=== PATIENT | male | born 1930 | race Caucasian/White ===

== ENCOUNTER → 2016-04-11 | Outpatient (CLI) | payer OTHER ==
[~2016-04-11] MED LIST: ASPI81TA28 PO; ATEN-175 PO; CHOL200010 PO; CIPR-255 PO; DOXA8TAB PO; FINA5TAB PO; LISI40TA PO; LSN40 PO; MELA3TAB PO; MULT-506 PO; RABE20TA5 PO; SIMV80TA5 PO
--- NOTE | 2016-04-11 09:44 | DIAGNOSTIC IMAGING REPORT ---
LEFT KNEE 2 VIEWS HISTORY: Left KNEE PAIN COMPARISON: None. FINDINGS: There is no fracture or dislocation. Soft tissues are unremarkable. No radiopaque foreign bodies. Small knee effusion. Calcification of the distal tendon is likely chronic. Mild cartilage space narrowing within the medial compartment of the knee with small partial osteophytes. IMPRESSION: 1. No fractures. 2. Mild medial osteoarthritis. 3. Small knee effusion. Electronically signed by: Arnoldo Amado M.D. 04/11/2016 9:43 AM Dictated Date/Time: 04/11/2016 9:42 AM
== END | disposition home or self-care (01) ==
LOC: C.RADBC 09:14
PROVIDERS: ATTEND Internal Medicine Geriatric Medicine
DX: M25.562 Pain in left knee (principal); M25.462 Effusion, left knee

== ENCOUNTER → 2016-05-11 | Outpatient (CLI) | payer OTHER ==
[2016-05-11 17:31] LABS: SYNOVIAL FLUID APPEARANCE HAZY; SYNOVIAL FLUID COLOR AMBER; SYNOVIAL FLUID MONONUC RELAT 90.4 %; SYNOVIAL FLUID POLYNUC RELAT 9.6 %
[2016-05-15 21:34] LABS: LYME DNA PCR CSF OR SYNOVIAL Not detected (Not Detected); LYME DNA SOURCE Synovial Fluid
== END | disposition home or self-care (01) ==
LOC: C.LABBC 13:27
PROVIDERS: ATTEND Orthopaedic Surgery
DX: M25.462 Effusion, left knee (principal); M25.562 Pain in left knee

== ENCOUNTER → 2016-06-08 | Outpatient (CLI) | payer OTHER ==
[2016-06-08 12:16] LABS: BASO % 0.2 %; BASO ABS # 0.01 K/uL (0-0.2); COMPLETE YES; EOS % 2.2 %; HEMATOCRIT 39.3 % (42-52); IG% 0.2 %; LYMPH ABS # 1.41 K/uL (1.2-3.4); MEAN CELL VOLUME 93.8 fL (80-100); MEAN CORPUSCULAR HGB CONC 34.1 g/dl (32-36); MONO % 12.3 %; NEUT % 54.1 %; PLATELET COUNT 191 K/uL (130-400); RED BLOOD COUNT 4.19 M/uL (4.7-6.1); WHITE BLOOD COUNT 4.55 K/uL (4.8-10.8)
[2016-06-08 12:29] LABS: BLOOD UREA NITROGEN 25 mg/dl (7-18); BUN/CREATININE RATIO 16.4 (10-20); CALCIUM 8.6 mg/dl (8.5-10.1); CARBON DIOXIDE 28 mmol/L (21-32); CHLORIDE 106 mmol/L (98-107); GLUCOSE 109 mg/dl (70-99); POTASSIUM 3.5 mmol/L (3.5-5.1); SODIUM 141 mmol/L (136-145)
[2016-06-08 12:35] LABS: ESTIMATED AVERAGE GLUCOSE 131 mg/dl; HA1C FLAG Normal (Normal)
[2016-06-08 12:42] LABS: ALB/GLOB RATIO 0.8 (0.9-2); ALKALINE PHOSPHATASE 68 U/L (45-117); ALT/SGPT 22 U/L (12-78); AST/SGOT 18 U/L (15-37); CHOLESTEROL 96 mg/dl (0-200); CHOLESTEROL/HDL RATIO 2.9; HDL CHOLESTEROL 33 mg/dl; LDL CHOLESTEROL CALCULATED 35 mg/dl; TRIGLYCERIDES 138 mg/dl (0-150); VERY LOW DENSITY LIPOPROT CALC 28 mg/dl
== END | disposition home or self-care (01) ==
LOC: C.LABPBG 09:46
PROVIDERS: ATTEND Internal Medicine Geriatric Medicine
DX: I10 Essential (primary) hypertension (principal); E78.5 Hyperlipidemia, unspecified; R73.9 Hyperglycemia, unspecified; M19.90 Unspecified osteoarthritis, unspecified site

== ENCOUNTER → 2016-06-14 | Outpatient (CLI) | payer OTHER ==
--- NOTE | 2016-06-14 12:12 | DIAGNOSTIC IMAGING REPORT ---
RENAL ULTRASOUND HISTORY: Renal insufficiency CHRONIC KIDNEY DISEASE COMPARISON: None. FINDINGS: Right kidney: Maximum dimension 10.1 cm. No evidence for hydronephrosis. 1.9 cm upper pole cyst. Moderate cortical scarring with mild increase in cortical echogenicity Left kidney: Maximum dimension 10.8 cm. No evidence for hydronephrosis. Moderate increase in cortical echogenicity with mild cortical scarring Bladder: No bladder wall thickening. The bilateral ureteral jets were identified. IMPRESSION: 1. Findings consistent with nonobstructive renal insufficiency. 2. Small right renal cyst. 3. No evidence for hydronephrosis. Electronically signed by: Octavio Nesbitt M.D. 06/14/2016 12:09 PM Dictated Date/Time: 06/14/2016 12:08 PM
== END | disposition home or self-care (01) ==
LOC: C.ULTRBC 11:12
PROVIDERS: ATTEND Internal Medicine Geriatric Medicine
DX: N18.9 Chronic kidney disease, unspecified (principal)

== ENCOUNTER → 2016-07-17 | Outpatient (CLI) | payer OTHER ==
--- NOTE | 2016-07-17 18:20 | ECHOCARDIOGRAM REPORT ---
*NOTICE TO RECEIVING [employer] This information is strictly Confidential and protected under [place] law. [place] law prohibits you from making any further disclosure of this information unless further disclosure is expressly permitted by the written consent of the person to whom it pertains or is authorized by law. A general authorization for the release of medical or other information is not sufficient for this purpose. Hospital accepts no responsibility if the information is made available to any other person, INCLUDING THE PATIENT. Interpretation Summary * Name: RAMONA BRONSON Study Date: 07/17/2016 02:32 PM BP: 141/69 mmHg * Patient Location: [facility] HR: 58 * : 1930 (M/d/yyyy) Gender: Male Height: 67 in * Age: 85 yrs Ethnicity: [place] Weight: 178 lb * Ordering Physician: Rudy Preston * Referring Physician: Ron Almaguer * Performed By: Xenia Black RDCS * * Reason For Study: Abnormal EKG, pre-op * BSA: 1.9 m2 * -- Conclusions -- * There is borderline concentric left ventricular hypertrophy. * Left ventricular systolic function is normal. * Grade I diastolic dysfunction, (abnormal relaxation pattern). * The right ventricle is mildly dilated. * Right ventricular systolic pressure is normal. Procedure Details * A complete two-dimensional transthoracic echocardiogram was performed (2D, M-mode, Doppler and color flow Doppler). Left Ventricle * The left ventricle is normal in size. * There is borderline concentric left ventricular hypertrophy. * Ejection Fraction = 55-60%. * Left ventricular systolic function is normal. * Grade I diastolic dysfunction, (abnormal relaxation pattern). Right Ventricle * The right ventricle is mildly dilated. * The right ventricular systolic function is normal. Atria * The left atrial size is normal. * Right atrial size is normal. Mitral Valve * The mitral valve leaflets appear normal. There is no evidence of stenosis, fluttering, or prolapse. * There is no mitral regurgitation noted. Tricuspid Valve * The tricuspid valve is not well visualized, but is grossly normal. * There is trace tricuspid regurgitation. * Right ventricular systolic pressure is normal. Aortic Valve * The aortic valve is normal in structure and function. * No hemodynamically significant valvular aortic stenosis. * Trace aortic regurgitation. Great Vessels * The aortic root is normal size. Pericardium/Pleural * There is no pericardial effusion. MMode 2D Measurements and Calculations IVSd 1.3 cm LVIDd 4.3 cm LVIDs 3.0 cm LVPWd 1.2 cm IVS/LVPW 1.1 FS 30.3 % EDV(Teich) 83.7 ml ESV(Teich) 35.2 ml EF(Teich) 58.0 % EDV(cubed) 80.3 ml ESV(cubed) 27.2 ml EF(cubed) 66.2 % LV mass(C)d 194.8 grams LV mass(C)dI 101.3 grams/m\S\2 SV(Teich) 48.5 ml SI(Teich) 25.2 ml/m\S\2 SV(cubed) 53.1 ml SI(cubed) 27.6 ml/m\S\2 Ao root diam 3.2 cm Ao root area 8.1 cm\S\2 ACS 2.0 cm LA dimension 3.5 cm asc Aorta Diam 3.5 cm LA/Ao 1.1 LVOT diam 2.0 cm LVOT area 3.3 cm\S\2 LVAd ap4 28.7 cm\S\2 LVLd ap4 8.7 cm EDV(MOD-sp4) 75.6 ml EDV(sp4-el) 80.3 ml LVAs ap4 17.0 cm\S\2 LVLs ap4 7.3 cm ESV(MOD-sp4) 32.0 ml ESV(sp4-el) 33.3 ml EF(MOD-sp4) 57.7 % EF(sp4-el) 58.5 % LVAd ap2 20.4 cm\S\2 LVLd ap2 8.0 cm EDV(MOD-sp2) 44.5 ml EDV(sp2-el) 44.2 ml LVAs ap2 12.6 cm\S\2 LVLs ap2 7.4 cm ESV(MOD-sp2) 17.7 ml ESV(sp2-el) 18.2 ml EF(MOD-sp2) 60.4 % EF(sp2-el) 58.9 % LVLd %diff -8.67 % EDV(MOD-bp) 59.9 ml LVLs %diff 0.90 % ESV(MOD-bp) 23.7 ml EF(MOD-bp) 60.4 % SV(MOD-sp4) 43.6 ml SI(MOD-sp4) 22.7 ml/m\S\2 SV(MOD-sp2) 26.9 ml SI(MOD-sp2) 14.0 ml/m\S\2 SV(MOD-bp) 36.2 ml SI(MOD-bp) 18.8 ml/m\S\2 SV(sp4-el) 46.9 ml SI(sp4-el) 24.4 ml/m\S\2 SV(sp2-el) 26.0 ml SI(sp2-el) 13.5 ml/m\S\2 Doppler Measurements and Calculations MV E max alyson 63.6 cm/sec MV A max alyson 85.8 cm/sec MV E/A 0.74 MV dec time 0.25 sec Ao V2 max 90.6 cm/sec Ao max PG 3.3 mmHg Ao max PG (full) 0.41 mmHg BOB(V,A) 3.1 cm\S\2 BOB(V,D) 3.1 cm\S\2 AI max alyson 276.6 cm/sec AI max PG 30.6 mmHg AI dec slope 134.9 cm/sec\S\2 AI P1/2t 600.7 msec LV V1 max PG 2.9 mmHg LV V1 max 84.7 cm/sec PA V2 max 107.1 cm/sec PA max PG 4.6 mmHg PA acc slope 403.5 cm/sec\S\2 PA acc time 0.13 sec PI max alyson 154.2 cm/sec PI max PG 9.5 mmHg PI dec slope 57.8 cm/sec\S\2 PI P1/2t 781.6 msec TR max alyson 196.6 cm/sec PA pr(Accel) 20.7 mmHg
== END | disposition home or self-care (01) ==
LOC: C.CPL 14:25
PROVIDERS: ATTEND Internal Medicine Geriatric Medicine
DX: R94.31 Abnormal electrocardiogram [ECG] [EKG] (principal); Z01.810 Encounter for preprocedural cardiovascular examination

== ENCOUNTER 2016-10-09 18:37 | Emergency (ER) | payer OTHER ==
[~2016-10-09] VITALS: Ht 170.2 cm; Wt 80.0 kg
[~2016-10-09 18:37] MED LIST changes: -CIPR-255 PO; -LISI40TA PO; -MELA3TAB PO
[2016-10-09 18:39] VITALS: TEMP 37.4; Ht 170.2 cm; Wt 80.0 kg
[2016-10-09] MEDS ORDERED: SODIUM CHLORIDE 0.9% 1000ML 1,000 ML IV ONE (18:51)
[2016-10-09] MEDS ORDERED: MELA3TAB PO (19:36)
[2016-10-09] MEDS ORDERED: LISI40TA PO (19:36)
[2016-10-09 19:38] LABS: HEMATOCRIT 33.2 % (42-52); MEAN CELL VOLUME 91.5 fL (80-100); MEAN CORPUSCULAR HEMOGLOBIN 31.4 pg (25-34); MEAN CORPUSCULAR HGB CONC 34.3 g/dl (32-36); MEAN PLATELET VOLUME 9.3 fL (7.4-10.4); PLATELET COUNT 183 K/uL (130-400); RED BLOOD COUNT 3.63 M/uL (4.7-6.1); WHITE BLOOD COUNT 6.79 K/uL (4.8-10.8)
[2016-10-09 19:58] LABS: BASO % 0.1 %; BASO ABS # 0.01 K/uL (0-0.2); COMPLETE YES; EOS % 0.1 %; IG% 0.3 %; LYMPH % 13.4 %; LYMPH ABS # 0.91 K/uL (1.2-3.4); MONO % 9.9 %; NEUT % 76.2 %
--- NOTE | 2016-10-09 19:58 | DIAGNOSTIC IMAGING REPORT ---
CHEST ONE VIEW PORTABLE CLINICAL HISTORY: 86 years-old Male presenting with Sepsis. TECHNIQUE: Portable upright AP view of the chest was obtained. COMPARISON: 07/07/2015. FINDINGS: Cardiomediastinal silhouette normal. Lungs and pleural spaces clear. Degenerative changes of the thoracic spine. Upper abdomen normal. IMPRESSION: 1. No acute cardiopulmonary disease. Electronically signed by: Ron Bates M.D. 10/09/2016 7:56 PM Dictated Date/Time: 10/09/2016 7:55 PM
[2016-10-09 20:04] LABS: URINE APPEARANCE CLEAR (CLEAR); URINE COLOR DK YELLOW; URINE NITRITE NEG (NEG); URINE SPECIFIC GRAVITY 1.029 (1.000-1.030); UROBILINOGEN NEG (NEG); ZZUR CULT IF INDIC CLEAN CATCH NO
[2016-10-09 20:04] LABS: PARTIAL THROMBOPLASTIN RATIO 1.2
[2016-10-09 20:13] LABS: MANUAL MICROSCOPIC REQUIRED? NO; REVIEW REQ? YES
[2016-10-09 20:15] LABS: URINE BILIRUBIN NEG (NEG)
[2016-10-09 20:15] LABS: ALT/SGPT 20 U/L (12-78); BLOOD UREA NITROGEN 37 mg/dl (7-18); BUN/CREATININE RATIO 20.5 (10-20); CALCIUM 8.7 mg/dl (8.5-10.1); CARBON DIOXIDE 22 mmol/L (21-32); CHLORIDE 105 mmol/L (98-107); GLUCOSE 117 mg/dl (70-99); MAGNESIUM 1.4 mg/dl (1.8-2.4); POTASSIUM 3.9 mmol/L (3.5-5.1); SODIUM 135 mmol/L (136-145)
[2016-10-09 20:19] LABS: ALB/GLOB RATIO 0.8 (0.9-2); ALKALINE PHOSPHATASE 67 U/L (45-117); AST/SGOT 22 U/L (15-37); PHOSPHORUS 2.3 mg/dl (2.5-4.9)
[2016-10-09] MEDS ORDERED: MAGNESIUM SULFATE 1GM / D5W 1 GM BAG IV STA (20:21)
[2016-10-09] MEDS ORDERED: SODIUM CHLORIDE 0.9% 1000ML 1,000 ML IV STA (20:22)
[2016-10-09 20:31] LABS: URINE MUCUS PRESENT (NONE PRSENT); URINE PATH CASTS 0-3 GRANULAR CASTS /lpf (0)
--- NOTE | 2016-10-09 21:10 | DIAGNOSTIC IMAGING REPORT ---
ABD/PELVIS NO IV OR ORAL CONT CLINICAL HISTORY: 86 years-old Male presenting with diarrhea and fever. TECHNIQUE: Multidetector CT of the abdomen and pelvis was performed without the use of intravenous contrast. IV contrast: None. A dose lowering technique was used consistent with the principles of ALARA (as low as reasonably achievable). COMPARISON: None. CT DOSE (mGy.cm): The estimated cumulative dose is 453.36 mGy.cm. 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 Lung bases: Minimal dependent opacities, likely atelectasis. Trace right pleural effusion. Mild cardiac enlargement. The intraventricular blood pool is less dense than the adjacent myocardium suggesting anemia. Liver: Normal morphology. Density consistent with hepatic steatosis. Biliary: No gross biliary ductal dilatation allowing for noncontrast technique. Normal gallbladder. Pancreas: Mild parenchymal atrophy. Spleen: Normal. Adrenal glands: Normal. Kidneys and ureters: Hypodensity at the upper pole the right kidney, indeterminate but likely cyst or nonobstructing punctate calculus in the interpolar region of the right kidney (series 3 image 139). Additional nonobstructing punctate calculus at the right lower pole (series 3 image 177). No left renal calculi. No hydronephrosis. Ureters normal without evidence of calculi or dilatation. Gastrointestinal tract: Few sigmoid diverticula noted. No bowel obstruction. Peritoneal cavity: No free fluid or intraperitoneal gas. Bladder: Normal. Pelvic organs: Prostate and seminal vesicles normal. Vasculature: Atherosclerosis of the abdominal aorta with minimal infrarenal ectasia measuring up to 2.6 cm in maximal transverse dimension. Lymph nodes: No enlarged lymph nodes in the abdomen or pelvis. Abdominal wall: Normal. Musculoskeletal: Degenerative changes of the spine. Degenerative changes of the sacroiliac joints. IMPRESSION: 1. Two nonobstructing punctate right renal calculi. 2. Hepatic steatosis. 3. Dependent atelectasis and trace right pleural effusion. 4. Suggestion of anemia. Electronically signed by: Ron Bates M.D. 10/09/2016 9:08 PM Dictated Date/Time: 10/09/2016 9:01 PM
[2016-10-09] MEDS ORDERED: CIPR-255 PO (22:18)
--- NOTE | 2016-10-09 22:23 | EMERGENCY ROOM VISIT NOTE ---
History Report prepared by Estela: Charles Banerjee Under the Supervision of: Dr. Husam Jose D.O. First contact with patient: 18:51 Chief Complaint: FEVER Stated Complaint: FEVER KIDNEY, SODIUM History of Present Illness The patient is a 86 year old male who presents to the Emergency Room with complaints of a waxing and waning fever of 102 degrees beginning 2 days ago. He was referred to the ED by his PCP. Per , the patient has had diarrhea for the past 1.5 weeks. She states that he has been taking Pepto Bismol for his diarrhea, and has taken Tylenol for his fever. She states that the Tylenol has helped his fever. The patient's states that the patient was shaking earlier today. She notes that he had shrimp and clams the night before he began his diarrhea. The patient denies any cough, or abdominal pain. He denies any recent travelling. Source of History: patient, spouse/significant other () Onset: 2 days ago Symptom Intensity: 102 degrees Quality: other (fever) Timing: waxes/wanes Associated Symptoms: No cough, No abdominal pain Note: Additional symptoms: Shaking earlier today. Review of Systems See HPI for pertinent positives & negatives. A total of 10 systems reviewed and were otherwise negative. Past Medical & Surgical Medical Problems: (1) HTN (hypertension) (2) Hyperlipidemia Family History No pertinent family history stated. Social History Smoking Status: Never Smoker Marital Status: Current/Historical Medications Scheduled Aspirin (Aspirin Ec), 152 MG PO QAM Atenolol (Tenormin), 100 MG PO QAM Cholecalciferol (Vitamin D), 2,000 INTER.UNIT PO QAM Ciprofloxacin Hcl (Cipro), 500 MG PO BID Doxazosin Mesylate (Bph) (Cardura Xl), 4 MG PO HS Finasteride (Proscar), 5 MG PO HS Lisinopril (Zestril), 40 MG PO QAM Melatonin (Melatonin), 3 MG PO HS Rabeprazole Sodium (Aciphex), 10 MG PO QAM Allergies Coded Allergies: No Known Allergies (Unverified , 07/07/15) Physical Exam Vital Signs Date Time Temp Pulse Resp B/P (MAP) Pulse Ox O2 Delivery O2 Flow Rate FiO2 10/09/16 23:31 132/66 10/09/16 23:12 68 17 96 10/09/16 23:01 135/62 10/09/16 22:54 65 10/09/16 22:42 67 23 95 10/09/16 22:31 120/60 10/09/16 22:12 67 13 95 10/09/16 22:01 138/60 10/09/16 21:42 66 22 97 10/09/16 21:32 138/53 10/09/16 21:24 127/65 10/09/16 20:46 123/60 10/09/16 20:42 65 20 97 10/09/16 20:31 128/58 10/09/16 20:16 123/54 10/09/16 20:12 65 28 96 10/09/16 20:07 64 97 10/09/16 20:01 122/58 10/09/16 19:52 62 23 96 10/09/16 19:46 116/55 10/09/16 19:43 90/60 10/09/16 19:37 65 25 95 10/09/16 19:22 65 92 10/09/16 19:07 66 20 92 10/09/16 19:01 111/57 10/09/16 18:55 66 10/09/16 18:47 96/69 10/09/16 18:39 37.4 71 16 89/49 92 Room Air Physical Exam GENERAL: Patient is awake, alert, and in no acute distress. Patient is resting comfortably and showing no signs of anxiety EYES: The conjunctivae are clear. The pupils are round and reactive. EARS, NOSE, MOUTH AND THROAT: The nose is without any evidence of any deformity. Mucous membranes are dry. Tongue is midline NECK: The neck is nontender and supple. RESPIRATORY: Diminished at the right base. Rales noted at the right lung-field. No tachypnea or conversational dyspnea noted. CARDIOVASCULAR: Regular rate and rhythm noted there no murmurs rubs or gallops normal S1 normal S2 GASTROINTESTINAL: The abdomen is soft. Bowel sounds are present in all quadrants. Abdomen is nontender MUSCULOSKELETAL/EXTREMITIES: There is no evidence of gross deformity full range of motion is noted in the hips and shoulders SKIN: There is no obvious evidence of any rash. There are no petechiae, pallor or cyanosis noted. NEUROLOGIC: Patient is awake alert and oriented x3. 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 Lung bases: Minimal dependent opacities, likely atelectasis. Trace right pleural effusion. Mild cardiac enlargement. The intraventricular blood pool is less dense than the adjacent myocardium suggesting anemia. Liver: Normal morphology. Density consistent with hepatic steatosis. Biliary: No gross biliary ductal dilatation allowing for noncontrast technique. Normal gallbladder. Pancreas: Mild parenchymal atrophy. Spleen: Normal. Adrenal glands: Normal. Kidneys and ureters: Hypodensity at the upper pole the right kidney, indeterminate but likely cyst or nonobstructing punctate calculus in the interpolar region of the right kidney (series 3 image 139). Additional nonobstructing punctate calculus at the right lower pole (series 3 image 177). No left renal calculi. No hydronephrosis. Ureters normal without evidence of calculi or dilatation. Gastrointestinal tract: Few sigmoid diverticula noted. No bowel obstruction. Peritoneal cavity: No free fluid or intraperitoneal gas. Bladder: Normal. Pelvic organs: Prostate and seminal vesicles normal. Vasculature: Atherosclerosis of the abdominal aorta with minimal infrarenal ectasia measuring up to 2.6 cm in maximal transverse dimension. Lymph nodes: No enlarged lymph nodes in the abdomen or pelvis. Abdominal wall: Normal. Musculoskeletal: Degenerative changes of the spine. Degenerative changes of the sacroiliac joints. IMPRESSION: 1. Two nonobstructing punctate right renal calculi. 2. Hepatic steatosis. 3. Dependent atelectasis and trace right pleural effusion. 4. Suggestion of anemia. Electronically signed by: Ron Bates M.D. CHEST ONE VIEW PORTABLE FINDINGS: Cardiomediastinal silhouette normal. Lungs and pleural spaces clear. Degenerative changes of the thoracic spine. Upper abdomen normal. IMPRESSION: 1. No acute cardiopulmonary disease. Electronically signed by: Ron Bates M.D. Laboratory Results 10/09/16 19:21 Red Blood Count 3.63, Mean Corpuscular Volume 91.5, Mean Corpuscular Hemoglobin 31.4, Mean Corpuscular Hemoglobin Concent 34.3, Mean Platelet Volume 9.3, Neutrophils (%) (Auto) 76.2, Lymphocytes (%) (Auto) 13.4, Monocytes (%) (Auto) 9.9, Eosinophils (%) (Auto) 0.1, Basophils (%) (Auto) 0.1, Neutrophils # (Auto) 5.17, Lymphocytes # (Auto) 0.91, Monocytes # (Auto) 0.67, Eosinophils # (Auto) 0.01, Basophils # (Auto) 0.01 10/09/16 19:21 Test 10/09/16 19:21 10/09/16 19:31 10/09/16 19:45 White Blood Count 6.79 K/uL (4.8-10.8) Red Blood Count 3.63 M/uL (4.7-6.1) Hemoglobin 11.4 g/dL (14.0-18.0) Hematocrit 33.2 % (42-52) Mean Corpuscular Volume 91.5 fL (80-100) Mean Corpuscular Hemoglobin 31.4 pg (25-34) Mean Corpuscular Hemoglobin Concent 34.3 g/dl (32-36) Platelet Count 183 K/uL (130-400) Mean Platelet Volume 9.3 fL (7.4-10.4) Neutrophils (%) (Auto) 76.2 % Lymphocytes (%) (Auto) 13.4 % Monocytes (%) (Auto) 9.9 % Eosinophils (%) (Auto) 0.1 % Basophils (%) (Auto) 0.1 % Neutrophils # (Auto) 5.17 K/uL (1.4-6.5) Lymphocytes # (Auto) 0.91 K/uL (1.2-3.4) Monocytes # (Auto) 0.67 K/uL (0.11-0.59) Eosinophils # (Auto) 0.01 K/uL (0-0.5) Basophils # (Auto) 0.01 K/uL (0-0.2) RDW Standard Deviation 42.1 fL (36.4-46.3) RDW Coefficient of Variation 12.5 % (11.5-14.5) Immature Granulocyte % (Auto) 0.3 % Immature Granulocyte # (Auto) 0.02 K/uL (0.00-0.02) Erythrocyte Sedimentation Rate 49 mm/hr (0-14) Prothrombin Time 11.0 SECONDS (9.0-12.0) Prothromb Time International Ratio 1.0 (0.9-1.1) Activated Partial Thromboplast Time 31.5 SECONDS (21.0-31.0) Partial Thromboplastin Ratio 1.2 Anion Gap 8.0 mmol/L (3-11) Est Creatinine Clear Calc Drug Dose 31.0 ml/min Estimated GFR () 39.2 Estimated GFR (Non- 33.8 BUN/Creatinine Ratio 20.5 (10-20) Calcium Level 8.7 mg/dl (8.5-10.1) Phosphorus Level 2.3 mg/dl (2.5-4.9) Magnesium Level 1.4 mg/dl (1.8-2.4) Total Bilirubin 0.7 mg/dl (0.2-1) Aspartate Amino Transf (AST/SGOT) 22 U/L (15-37) Alanine Aminotransferase (ALT/SGPT) 20 U/L (12-78) Alkaline Phosphatase 67 U/L (45-117) Total Creatine Kinase 83 U/L (39-308) Creatine Kinase MB < 0.5 ng/ml (0.5-3.6) Creatine Kinase MB Ratio (0-3.0) Troponin I < 0.015 ng/ml (0-0.045) C-Reactive Protein 9.20 mg/dl (0-0.29) Pro-B-Type Natriuretic Peptide 785 pg/ml (0-1800) Total Protein 7.3 gm/dl (6.4-8.2) Albumin 3.2 gm/dl (3.4-5.0) Globulin 4.1 gm/dl (2.5-4.0) Albumin/Globulin Ratio 0.8 (0.9-2) Lipase 215 U/L (73-393) Bedside Lactic Acid Venous 1.03 mmol/L (0.90-1.70) Urine Color DK YELLOW Urine Appearance CLEAR (CLEAR) Urine pH 5.0 (4.5-7.5) Urine Specific [place] 1.029 (1.000-1.030) Urine Protein TRACE (NEG) Urine Glucose (UA) NEG (NEG) Urine Ketones TRACE (NEG) Urine Occult Blood NEG (NEG) Urine Nitrite NEG (NEG) Urine Bilirubin NEG (NEG) Urine Urobilinogen NEG (NEG) Urine Leukocyte Esterase NEG (NEG) Urine WBC (Auto) 1-5 /hpf (0-5) Urine RBC (Auto) 0-4 /hpf (0-4) Urine Hyaline Casts (Auto) 5-10 /lpf (0-5) Urine Epithelial Cells (Auto) 10-20 /lpf (0-5) Urine Bacteria (Auto) NEG (NEG) Urine Pathogenic Casts 0-3 GRANULAR CASTS /lpf (0) Urine Mucus PRESENT (NONE PRSENT) Laboratory results per my review. Medications Administered Medications (Trade) Dose Ordered Sig/Jr Route Start Time Stop Time Status Last Admin Dose Admin Sodium Chloride 1,000 ml @ 999 mls/hr Q1H1M ONCE IV 10/09/16 18:51 10/09/16 19:51 DC 10/09/16 17:40 999 MLS/HR Magnesium Sulfate (Magnesium Sulfate) 2 gm NOW STAT IV 10/09/16 20:21 10/09/16 20:22 DC 10/09/16 20:34 2 GM Sodium Chloride 1,000 ml @ 999 mls/hr Q1H1M STAT IV 10/09/16 20:22 10/09/16 21:22 DC 10/09/16 20:33 999 MLS/HR ECG Indication: other (hypotension) Rate (beats per minute): 65 Rhythm: sinus rhythm Findings: 1st degree AV block, no ectopy, other (Poor R wave progression) Comparison ECG Date: 07/07/15 Change: no significant change ED Course 1854: The patient was evaluated in room A12B. A complete history and physical examination were performed. Ordered NSS 1,000 ml @ 999 mls/hr IV. 2020: Ordered Magnesium Sulfate 2 gm IV, NSS 1,000 ml @ 999 mls/hr IV. 2214: Upon reevaluation, the patient is resting comfortably. He would like to go home. I discussed the results and treatment plan with him. The patient verbalized agreement of the treatment plan. He was discharged home. Medical Decision Differential diagnosis: Etiologies such as viral syndrome, otitis, pharyngitis, pneumonia, influenza, meningitis, urinary tract infection, sepsis, bacteremia, as well as others were entertained. Nursing notes reviewed. Additional history is obtained from the patient's family member. The patient is an 86-year-old male who presented to the emergency department for an evaluation of fever and diarrhea. The patient has had symptoms for the last few days. His had been treating him with antipyretics and at this time he does not have a fever. The patient's physical exam was not consistent with an acute surgical abdomen. He had laboratory studies done by his primary care physician and was sent to the emergency department because of these abnormal labs. The patient was treated with IV fluids in the emergency department. I discussed the patient's laboratory and radiographic studies with him. I offered to have the patient evaluated by the hospitalist group for possible inpatient management but the patient did not wish to stay in the hospital. He was encouraged to rest and avoid any strenuous activity. He was also encouraged to continue all medications as prescribed. He was also encouraged to follow-up with his primary care physician for repeat laboratory studies to ensure things were improving. He was also encouraged to bring a stool specimen in for treatment and testing. The was also very concerned about the ongoing fever. I gave him a prescription for Cipro and told him to have it filled in 48 hours if he continues to have fever and diarrhea. Otherwise he was encouraged to return the emergency Department immediately if symptoms change worsen or the need arises. Medication Reconcilliation Current Medication List: was personally reviewed by me Blood Pressure Screening Patient's blood pressure: Normal blood pressure Blood pressure disposition: Did not require urgent referral Impression Primary Impression: Diarrhea Additional Impressions: Dehydration TERESA (acute kidney injury) Fever Hypomagnesemia Scribe Attestation The scribe's documentation has been prepared under my direction and personally reviewed by me in its entirety. I confirm that the note above accurately reflects all work, treatment, procedures, and medical decision making performed by me. Departure Information Dispostion Home / Self-Care Prescriptions Ciprofloxacin Hcl (CIPRO) 500 Mg Tab 500 MG PO BID, #20 TAB Prov: Husam Jose, 10/09/16 Referrals Rudy Preston M.D. (PCP) Forms HOME CARE DOCUMENTATION FORM, IMPORTANT VISIT INFORMATION Patient Instructions Dehydration, Diarrhea, My [facility] Additional Instructions Continue to drink plenty clear liquids including electrolyte drinks such as Pedialyte and Gatorade. Continue using Motrin and Tylenol as directed for pain and fever. Call your family to schedule a follow-up appointment. I will recommend repeat laboratory studies in 48 hours. Start taking the antibiotic on if you continue to have a fever. Try to have stool studies obtained with your family Problem Qualifiers Primary Impression: Diarrhea Diarrhea type: unspecified type Qualified Codes: R19.7 - Diarrhea, unspecified Additional Impressions: Fever Fever type: unspecified Qualified Codes: R50.9 - Fever, unspecified
[2016-10-09 23:12] VITALS: PULSE 68; O2SAT 96
[2016-10-09 23:31] VITALS: BP 132/66
== END 2016-10-09 23:50 | disposition home or self-care (01) ==
LOC: C.EDB 18:38 → C.EDA 23:50
DX: R50.9 Fever, unspecified (principal); R19.7 Diarrhea, unspecified; E86.0 Dehydration; N17.9 Acute kidney failure, unspecified; E83.42 Hypomagnesemia; I10 Essential (primary) hypertension; E78.5 Hyperlipidemia, unspecified; Z79.82 Long term (current) use of aspirin; Z79.899 Other long term (current) drug therapy

== ENCOUNTER → 2016-10-11 | Outpatient (CLI) | payer OTHER ==
[~2016-10-11] MED LIST changes: +CIPR-255 PO; +LISI40TA PO; -LSN40 PO; +MELA3TAB PO; -MULT-506 PO; -SIMV80TA5 PO
[2016-10-11 17:49] LABS: BASO % 0.2 %; BASO ABS # 0.01 K/uL (0-0.2); COMPLETE YES; EOS % 1.2 %; HEMATOCRIT 34.6 % (42-52); IG% 0.2 %; LYMPH % 19.5 %; LYMPH ABS # 1.14 K/uL (1.2-3.4); MEAN CELL VOLUME 93.3 fL (80-100); MEAN CORPUSCULAR HEMOGLOBIN 31.8 pg (25-34); MEAN CORPUSCULAR HGB CONC 34.1 g/dl (32-36); MEAN PLATELET VOLUME 10.2 fL (7.4-10.4); MONO % 11.1 %; NEUT % 67.8 %; PLATELET COUNT 178 K/uL (130-400); RED BLOOD COUNT 3.71 M/uL (4.7-6.1); WHITE BLOOD COUNT 5.84 K/uL (4.8-10.8)
[2016-10-11 17:50] LABS: URINE APPEARANCE TURBID (CLEAR); URINE BILIRUBIN NEG (NEG); URINE COLOR DK YELLOW; URINE NITRITE NEG (NEG); URINE SPECIFIC GRAVITY 1.026 (1.000-1.030); UROBILINOGEN NEG (NEG); ZZUR CULT IF INDIC CLEAN CATCH NO
[2016-10-11 17:54] LABS: MANUAL MICROSCOPIC REQUIRED? NO; REVIEW REQ? NO
[2016-10-11 19:03] LABS: ALB/GLOB RATIO 0.7 (0.9-2); ALKALINE PHOSPHATASE 64 U/L (45-117); ALT/SGPT 27 U/L (12-78); AST/SGOT 23 U/L (15-37); BLOOD UREA NITROGEN 22 mg/dl (7-18); BUN/CREATININE RATIO 15.9 (10-20); CALCIUM 8.7 mg/dl (8.5-10.1); CARBON DIOXIDE 25 mmol/L (21-32); CHLORIDE 109 mmol/L (98-107); GLUCOSE 102 mg/dl (70-99); LYME DISEASE AB IGG NEG (NEG); LYME DISEASE AB IGM NEG (NEG); MAGNESIUM 1.8 mg/dl (1.8-2.4); POTASSIUM 4.1 mmol/L (3.5-5.1); SODIUM 138 mmol/L (136-145)
== END | disposition home or self-care (01) ==
LOC: C.LABPBG 13:20
PROVIDERS: ATTEND Internal Medicine Geriatric Medicine
DX: N18.9 Chronic kidney disease, unspecified (principal); R50.9 Fever, unspecified; R19.7 Diarrhea, unspecified; E83.42 Hypomagnesemia

== ENCOUNTER → 2016-10-13 | Outpatient (CLI) | payer OTHER | END | disposition home or self-care (01) | LOC: C.LAB1850 10:00 | PROVIDERS: ATTEND Nurse Practitioner Adult Health | DX: R50.9 Fever, unspecified (principal); R19.7 Diarrhea, unspecified; R63.4 Abnormal weight loss ==

== ENCOUNTER → 2016-12-11 | Outpatient (CLI) | payer OTHER ==
[2016-12-11 17:44] LABS: BASO % 0.2 %; BASO ABS # 0.01 K/uL (0-0.2); COMPLETE YES; EOS % 3.8 %; HEMATOCRIT 37.5 % (42-52); IG% 0.2 %; LYMPH % 25.3 %; LYMPH ABS # 1.33 K/uL (1.2-3.4); MEAN CELL VOLUME 95.2 fL (80-100); MEAN CORPUSCULAR HEMOGLOBIN 31.7 pg (25-34); MEAN CORPUSCULAR HGB CONC 33.3 g/dl (32-36); MONO % 10.5 %; PLATELET COUNT 169 K/uL (130-400); RED BLOOD COUNT 3.94 M/uL (4.7-6.1); WHITE BLOOD COUNT 5.26 K/uL (4.8-10.8)
[2016-12-11 18:14] LABS: ALT/SGPT 17 U/L (12-78); AST/SGOT 16 U/L (15-37); BLOOD UREA NITROGEN 25 mg/dl (7-18); BUN/CREATININE RATIO 15.9 (10-20); CALCIUM 9.3 mg/dl (8.5-10.1); CARBON DIOXIDE 24 mmol/L (21-32); CHLORIDE 103 mmol/L (98-107); GLUCOSE 92 mg/dl (70-99); POTASSIUM 4.5 mmol/L (3.5-5.1); SODIUM 137 mmol/L (136-145)
[2016-12-11 18:15] LABS: URINE PROTIEN/CREAT RATIO 0.2 (0-0.2); URINE TOTAL PROTEIN 40.2 mg/dl (0-11.9)
[2016-12-11 18:24] LABS: ALB/GLOB RATIO 0.9 (0.9-2); ALKALINE PHOSPHATASE 74 U/L (45-117)
== END | disposition home or self-care (01) ==
LOC: C.LABPBG 15:40
PROVIDERS: ATTEND Internal Medicine Geriatric Medicine
DX: I25.10 Atherosclerotic heart disease of native coronary artery without angina pectoris (principal); I12.9 Hypertensive chronic kidney disease with stage 1 through stage 4 chronic kidney disease, or unspecified chronic kidney disease; R50.9 Fever, unspecified; E78.5 Hyperlipidemia, unspecified; R73.9 Hyperglycemia, unspecified; R63.4 Abnormal weight loss; D64.9 Anemia, unspecified; Z86.010 Personal history of colon polyps; N18.9 Chronic kidney disease, unspecified

== ENCOUNTER → 2017-06-18 | Outpatient (CLI) | payer OTHER ==
[2017-06-18 12:57] LABS: BASO % 0.5 %; BASO ABS # 0.02 K/uL (0-0.2); EOS % 2.6 %; HEMATOCRIT 39.4 % (42-52); HEMOGLOBIN 13.5 g/dL (14.0-18.0); LYMPH % 33.7 %; LYMPH ABS # 1.31 K/uL (1.2-3.4); MEAN CELL VOLUME 93.8 fL (80-100); MEAN CORPUSCULAR HEMOGLOBIN 32.1 pg (25-34); MEAN CORPUSCULAR HGB CONC 34.3 g/dl (32-36); MEAN PLATELET VOLUME 9.8 fL (7.4-10.4); MONO % 14.1 %; MONO ABS # 0.55 K/uL (0.11-0.59); NEUT % 49.1 %; NEUT ABS # 1.91 K/uL (1.4-6.5); PLATELET COUNT 189 K/uL (130-400); RED CELL DISTRIBUTION WIDTH CV 13.3 % (11.5-14.5); RED CELL DISTRIBUTION WIDTH SD 45.7 fL (36.4-46.3); WHITE BLOOD COUNT 3.89 K/uL (4.8-10.8)
[2017-06-18 13:22] LABS: ALBUMIN 3.7 gm/dl (3.4-5.0); ALT/SGPT 18 U/L (12-78); AST/SGOT 17 U/L (15-37); BLOOD UREA NITROGEN 22 mg/dl (7-18); CALCIUM 8.9 mg/dl (8.5-10.1); CARBON DIOXIDE 25 mmol/L (21-32); CREATININE 1.47 mg/dl (0.60-1.40); GLUCOSE 86 mg/dl (70-99); HEMOGLOBIN A1C 6.1 % (4.5-5.6); POTASSIUM 4.7 mmol/L (3.5-5.1); SODIUM 136 mmol/L (136-145)
[2017-06-18 13:33] LABS: ALKALINE PHOSPHATASE 75 U/L (45-117); CHOLESTEROL 93 mg/dl (0-200); LDL CHOLESTEROL CALCULATED 36 mg/dl; TOTAL PROTEIN 8.2 gm/dl (6.4-8.2)
== END | disposition home or self-care (01) ==
LOC: C.LABPBG 09:44
PROVIDERS: ATTEND Internal Medicine Geriatric Medicine
DX: I10 Essential (primary) hypertension (principal); E78.5 Hyperlipidemia, unspecified; D64.9 Anemia, unspecified; R73.9 Hyperglycemia, unspecified; E53.8 Deficiency of other specified B group vitamins

== ENCOUNTER 2020-07-11 08:25 | Observation (INO) ==
--- NOTE | 2020-07-11 09:43 | Emergency Department Note ---
Impression & Plan Weakness, Anemia, Fever, Low blood pressure ED Provider Note NAME: RAMONA BRONSON AGE: 89 SEX: M : 1930 ARRIVES VIA: Walk-In INFORMANT: Patient, ED PROVIDER(S): Husam Jose DO CHIEF COMPLAINT: Generalized weakness HPI: The patient is an 89-year-old male who presented to the emergency department for an evaluation of generalized weakness. The patient has noticed that his blood pressure has been very low. He is also had a fever especially over the last 48 hours. The patient states when he tries to stand he becomes very dizzy and lightheaded. He is on multiple medications for blood pressure and did not take his blood pressure medication this morning. He denies having any abdominal pain. He has no vomiting or diarrhea. He notices no rashes. He did have slight cough with difficulty breathing but overall has not had any specific productive sputum that he knows of. The patient was seen by his primary care physician for different issues last week. He presented to the emergency department today because of dizziness upon standing lightheadedness and felt as though he was going to fall. ROS: See above HPI for pertinent positives & negatives. A total of 10 systems reviewed and were otherwise negative. PAST MEDICAL HISTORY: See Below PAST SURGICAL HISTORY: See Below FAMILY HISTORY: See Below SOCIAL HISTORY: See Below HOME MEDICATIONS: See Below ALLERGIES: See Below VITALS: See Below PHYSICAL EXAMINATION: GENERAL: The patient is awake and alert. He is nonanxious appearing. EYES: The conjunctivae are clear. The pupils are round and reactive. EARS, NOSE, MOUTH AND THROAT: The nose is without any evidence of any deformity. NECK: The neck is nontender and supple. RESPIRATORY: Normal respiratory effort was noted. There were diminished breath sounds in the left lung field. CARDIOVASCULAR: Regular rate and rhythm noted there no murmurs rubs or gallops normal S1 normal S2. GASTROINTESTINAL: The abdomen is soft. Abdomen is nontender. MUSCULOSKELETAL/EXTREMITIES: There is no evidence of gross deformity full range of motion is noted in the hips and shoulders. SKIN: There is no obvious evidence of any rash. There are no petechiae, pallor or cyanosis noted. NEUROLOGIC: Patient is awake alert and oriented x3. Strength was symmetric. MEDICAL DECISION MAKING: The patient is an 89-year-old male who presented to the emergency department with his significant other for an evaluation of weakness. The patient has had fever over the course the last few days. His significant other has been treating this with [id number] medication for fever. The patient is also noticed generalized weakness. He has had a few episodes of dizziness upon standing and actually fell last week. The patient had no fever in the emergency department. Given his age and comorbidities further laboratory and radiographic studies were obtained to determine the possible cause for the fever. The patient treated with IV fluids in the emergency department. He was reevaluated multiple times. He was able to ambulate without difficulty. His significant other was very concerned because the patient's age and comorbidities as well as his long history of hypertension because of his episodes of low blood pressure she was not comfortable with him being discharged home. For this reason I discussed his case with the on-call [facility] hospitalist group. They have agreed to evaluate the patient in the emergency department for further management and disposition. Triage Nursing notes reviewed. Prior medical records reviewed Vital Signs: reviewed and remarkable for no significant abnormalities Differential diagnosis: Viral syndrome, otitis, pharyngitis, pneumonia, influenza, meningitis, urinary tract infection, sepsis, bacteremia, as well as other pathologies. ER treatment provided: See below Diagnostics interpreted by me: ECG: EKG was obtained in the emergency department. My interpretation is sinus r hythm at 84 bpm. First-degree AV block was noted. There is no ectopy. Poor R wave progression was noted with anterior Q waves. This was compared to a tracing from October 092016. No significant changes were noted. Cardiac Monitoring: An order was placed for continuous cardiac monitoring. The monitor shows a rate of 92 bpm with sinus rhythm. Laboratory studies: As stated above and show below. Imaging studies: See below Consultation(s): 1230: I discussed this case with Dr. Aj.. She will evaluate the patient in the emergency department. 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 Chronic kidney disease, stage III (moderate) Diverticulosis (~07/2013) noted colonoscopy July 2013 Gastroesophageal reflux disease History of colon polyps (~07/2013) July 2013 HTN (hypertension) Hyperlipidemia Osteoarthritis Prediabetes Vitamin B12 deficiency Surgical History H/O arthroscopic knee surgery H/O circumcision S/P coronary artery stent placement (2006) x 2 Family History Family/Other Coronary heart disease Father Kidney disease Family history of liver cancer Cancer kidney Mother Heart disease Family history of CVA Brother Myocardial infarction Denies family history of Ovarian cancer Prostate cancer Breast cancer Colorectal cancer Social History Smoking Status: Never smoker Second Hand Exposure: No; Hx Alcohol Use: Yes Alcohol type: beer Alcohol Intake Frequency: Monthly or Less Hx Substance Use: No Preferred Language: Bermudian Communication Ability: Effective Visual Impairment: No Limitations Hearing Ability: Hard of Hearing Beliefs That Will Affect Care: None marital status: Current Living Situation: Spouse current occupational status: retired 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 Diet soda) during the past year weight has: remained stable Dental Care, Regularly: Yes Physical Activity Frequency: 3-4 Times per Week Seatbelt Use: always Sunscreen Use: No Allergies Allergies Allergy/AdvReac Type Severity Reaction Status Date / Time No Known Allergies Allergy Unverified 06/29/20 08:44 Home Meds Home Medications Medication Instructions Recorded Confirmed acetaminophen 650 mg 650 mg PO Q12H PRN 06/29/20 07/11/20 tablet,extended release aspirin [Adult Low Dose Aspirin] 162 mg PO QAM 07/11/20 07/11/20 atenolol 50 mg PO QAM 07/11/20 07/11/20 cetirizine 10 mg PO QAM 07/11/20 07/11/20 doxazosin 4 mg PO QPM 07/11/20 07/11/20 finasteride 5 mg PO QAM 07/11/20 07/11/20 lisinopril 20 mg PO QAM 07/11/20 07/11/20 Previous Rx's Medication Instructions Recorded ergocalciferol (vitamin D2) 50 mcg 2,000 units PO DAILY #30 tab 11/19/18 (2,000 unit) tablet simvastatin 40 mg tablet 40 mg PO QPM #90 tab 02/01/20 rabeprazole 20 mg tablet,delayed 20 mg PO DAILY PRN #90 tab 06/20/20 release Results & Data (ED) Vital Signs Vital Signs - 24 hr 07/11/20 08:55 07/11/20 09:34 07/11/20 09:39 Temperature 36.7 C Temperature Source Temporal Artery Scan Pulse Rate 94 H 85 Pulse Rate [Apical] 85 Pulse Rate from SpO2 Sensor 87 Respiratory Rate 18 20 18 Respiratory Effort / Characteristics Non-Labored Non-Labored Spontaneous Respiratory Depth Normal Normal Respiratory Pattern Regular Blood Pressure 104/61 125/59 L Blood Pressure [Right Arm] 125/59 L Blood Pressure Mean 75 81 Blood Pressure Mean [Right Arm] 81 Pulse Oximetry 95 94 94 Oxygen Delivery Method Room Air Room Air Sepsis Recent Fever Within 48 Hours No Sepsis New/Unexplained Change in Mental Status No Sepsis Action Taken by Nursing No Action Required 07/11/20 09:40 07/11/20 09:54 07/11/20 10:00 Temperature Temperature Source Pulse Rate 85 85 92 H Pulse Rate [Apical] Pulse Rate from SpO2 Sensor 85 84 Respiratory Rate 20 21 24 Respiratory Effort / Characteristics Respiratory Depth Respiratory Pattern Blood Pressure 93/66 L Blood Pressure [Right Arm] Blood Pressure Mean 75 Blood Pressure Mean [Right Arm] Pulse Oximetry 94 95 93 Oxygen Delivery Method Room Air Sepsis Recent Fever Within 48 Hours Sepsis New/Unexplained Change in Mental Status Sepsis Action Taken by Nursing 07/11/20 10:01 07/11/20 10:31 07/11/20 10:37 Temperature Temperature Source Pulse Rate 85 82 83 Pulse Rate [Apical] Pulse Rate from SpO2 Sensor 85 83 83 Respiratory Rate 20 20 23 Respiratory Effort / Characteristics Respiratory Depth Respiratory Pattern Blood Pressure 117/61 Blood Pressure [Right Arm] Blood Pressure Mean 79 Blood Pressure Mean [Right Arm] Pulse Oximetry 95 96 93 Oxygen Delivery Method Sepsis Recent Fever Within 48 Hours Sepsis New/Unexplained Change in Mental Status Sepsis Action Taken by Nursing 07/11/20 10:38 07/11/20 11:00 07/11/20 11:01 Temperature Temperature Source Pulse Rate 83 82 81 Pulse Rate [Apical] Pulse Rate from SpO2 Sensor 83 82 82 Respiratory Rate 20 22 20 Respiratory Effort / Characteristics Respiratory Depth Respiratory Pattern Blood Pressure 118/71 Blood Pressure [Right Arm] Blood Pressure Mean 86 Blood Pressure Mean [Right Arm] Pulse Oximetry 94 93 95 Oxygen Delivery Method Sepsis Recent Fever Within 48 Hours Sepsis New/Unexplained Change in Mental Status Sepsis Action Taken by Nursing 07/11/20 11:30 07/11/20 11:31 07/11/20 12:00 Temperature Temperature Source Pulse Rate 82 81 79 Pulse Rate [Apical] Pulse Rate from SpO2 Sensor 82 82 79 Respiratory Rate 21 24 20 Respiratory Effort / Characteristics Respiratory Depth Respiratory Pattern Blood Pressure 114/66 118/64 Blood Pressure [Right Arm] Blood Pressure Mean 82 82 Blood Pressure Mean [Right Arm] Pulse Oximetry 94 94 93 Oxygen Delivery Method Sepsis Recent Fever Within 48 Hours Sepsis New/Unexplained Change in Mental Status Sepsis Action Taken by Nursing 07/11/20 12:01 07/11/20 12:30 07/11/20 12:31 Temperature Temperature Source Pulse Rate 79 75 75 Pulse Rate [Apical] Pulse Rate from SpO2 Sensor 79 75 75 Respiratory Rate 23 20 20 Respiratory Effort / Characteristics Respiratory Depth Respiratory Pattern Blood Pressure 124/90 Blood Pressure [Right Arm] Blood Pressure Mean 101 Blood Pressure Mean [Right Arm] Pulse Oximetry 91 94 94 Oxygen Delivery Method Sepsis Recent Fever Within 48 Hours Sepsis New/Unexplained Change in Mental Status Sepsis Action Taken by Nursing 07/11/20 13:00 07/11/20 13:01 07/11/20 13:25 Temperature Temperature Source Pulse Rate 77 78 Pulse Rate [Apical] 77 Pulse Rate from SpO2 Sensor 77 79 Respiratory Rate 21 22 22 Respiratory Effort / Characteristics Respiratory Depth Respiratory Pattern Blood Pressure 128/79 Blood Pressure [Right Arm] 128/79 Blood Pressure Mean 95 Blood Pressure Mean [Right Arm] 95 Pulse Oximetry 93 93 94 Oxygen Delivery Method Room Air Sepsis Recent Fever Within 48 Hours Sepsis New/Unexplained Change in Mental Status Sepsis Action Taken by Nursing 07/11/20 13:30 07/11/20 13:31 Temperature Temperature Source Pulse Rate 77 77 Pulse Rate [Apical] Pulse Rate from SpO2 Sensor 78 78 Respiratory Rate 22 20 Respiratory Effort / Characteristics Respiratory Depth Respiratory Pattern Blood Pressure 120/80 Blood Pressure [Right Arm] Blood Pressure Mean 93 Blood Pressure Mean [Right Arm] Pulse Oximetry 96 95 Oxygen Delivery Method Sepsis Recent Fever Within 48 Hours Sepsis New/Unexplained Change in Mental Status Sepsis Action Taken by [facility] Medications Current Medication List: was personally reviewed by me Laboratory Data Attestation: I reviewed the patient's lab results. Result diagrams: 07/11/20 09:40 07/11/20 09:40 Lab Results 0507/11/20 07/11/20 Range/Units 09:40 09:40 09:40 WBC 6.78 (4.8-10.8) K/uL RBC 3.73 L (4.7-6.1) M/uL Hgb 11.8 L (14.0-18.0) g/dL Hct 34.9 L (42-52) % MCV 93.6 (80-100) fL MCH 31.6 (25-34) pg MCHC 33.8 (32-36) g/dL RDW Std Deviation 42.8 (36.4-46.3) fL RDW Coeff of Randy 12.7 (11.5-14.5) % Plt Count 184 (130-400) K/uL MPV 9.1 (7.4-10.4) fL Immature Gran % (Auto) 0.1 % Neut % (Auto) 73.3 % Lymph % (Auto) 12.7 % Slope % (Auto) 11.7 % Eos % (Auto) 2.1 % Baso % (Auto) 0.1 % Neut # (Auto) 4.97 (1.4-6.5) K/uL Lymph # (Auto) 0.86 L (1.2-3.4) K/uL Slope # (Auto) 0.79 H (0.11-0.59) K/uL Eos # (Auto) 0.14 (0-0.5) K/uL Baso # (Auto) 0.01 (0-0.2) K/uL Immature Gran # (Auto) 0.01 (0.00-0.02) K/uL PT 10.6 (9.0-12.0) Seconds INR 1.0 (0.9-1.1) APTT 29.7 (21.0-31.0) Seconds PTT Ratio 1.1 Sodium 134 L (136-145) mmol/L Potassium 4.3 (3.5-5.1) mmol/L Chloride 104 (98-107) mmol/L Carbon Dioxide 22 (21-32) mmol/L Anion Gap 8.0 (3-11) BUN 35 H (7-18) mg/dl Creatinine 1.82 H (0.6-1.4) mg/dl Est Cr Clr Drug Dosing Not Reportable Est GFR ( Amer) 37.9 Est GFR (Non-Af Amer) 32.7 BUN/Creatinine Ratio 19.4 (10-20) Glucose 115 H (70-99) mg/dl Lactate (0.4-2.0) mmol/L Calcium 8.7 (8.5-10.1) mg/dl Magnesium 1.9 (1.8-2.4) mg/dl Total Bilirubin 0.9 (0.2-1) mg/dl AST 32 (15-37) U/L ALT 23 (12-78) U/L Alkaline Phosphatase 64 (45-117) U/L Troponin I < 0.015 (0-0.045) ng/ml NT-Pro-B Natriuret Pep 500 (0-1800) pg/ml Total Protein 8.1 (6.4-8.2) gm/dl Albumin 3.1 L (3.4-5.0) gm/dl Globulin 5.0 H (2.5-4.0) gm/dl Albumin/Globulin Ratio 0.6 L (0.9-2) Procalcitonin (0-0.5) ng/ml Urine Color Urine Appearance (Clear) Urine pH (4.5-7.5) Ur Specific [place] (1.000-1.030) Urine Protein (Negative) Urine Glucose (UA) (Negative) Urine Ketones (Negative) Urine Blood (Negative) Urine Nitrite (Negative) Urine Bilirubin (Negative) Urine Urobilinogen (Negative) Ur Leukocyte Esterase (Negative) Urine WBC (Auto) (0-5) /hpf Urine RBC (Auto) (0-4) /hpf U Hyaline Cast (Auto) (0-5) /lpf U Epithel Cells (Auto) (0-5) /lpf Urine Bacteria (Auto) (Negative) Anaplasma Smear See Comment Lyme Disease IgG Ab (Negative) Lyme Disease IgM Ab (Negative) COVID-19 Eval Order SARS-CoV-2 (PCR) (Negative) Influenza Type A (PCR) (Neg) Influenza Type B (PCR) (Neg) RSV (RT-PCR) (Neg) 07/11/20 07/11/20 07/11/20 Range/Units 09:40 09:40 09:40 WBC (4.8-10.8) K/uL RBC (4.7-6.1) M/uL Hgb (14.0-18.0) g/dL Hct (42-52) % MCV (80-100) fL MCH (25-34) pg MCHC (32-36) g/dL RDW Std Deviation (36.4-46.3) fL RDW Coeff of Randy (11.5-14.5) % Plt Count (130-400) K/uL MPV (7.4-10.4) fL Immature Gran % (Auto) % Neut % (Auto) % Lymph % (Auto) % Slope % (Auto) % Eos % (Auto) % Baso % (Auto) % Neut # (Auto) (1.4-6.5) K/uL Lymph # (Auto) (1.2-3.4) K/uL Slope # (Auto) (0.11-0.59) K/uL Eos # (Auto) (0-0.5) K/uL Baso # (Auto) (0-0.2) K/uL Immature Gran # (Auto) (0.00-0.02) K/uL PT (9.0-12.0) Seconds INR (0.9-1.1) APTT (21.0-31.0) Seconds PTT Ratio Sodium (136-145) mmol/L Potassium (3.5-5.1) mmol/L Chloride (98-107) mmol/L Carbon Dioxide (21-32) mmol/L Anion Gap (3-11) BUN (7-18) mg/dl Creatinine (0.6-1.4) mg/dl Est Cr Clr Drug Dosing Est GFR ( Amer) Est GFR (Non-Af Amer) BUN/Creatinine Ratio (10-20) Glucose (70-99) mg/dl Lactate 1.2 (0.4-2.0) mmol/L Calcium (8.5-10.1) mg/dl Magnesium (1.8-2.4) mg/dl Total Bilirubin (0.2-1) mg/dl AST (15-37) U/L ALT (12-78) U/L Alkaline Phosphatase (45-117) U/L Troponin I (0-0.045) ng/ml NT-Pro-B Natriuret Pep (0-1800) pg/ml Total Protein (6.4-8.2) gm/dl Albumin (3.4-5.0) gm/dl Globulin (2.5-4.0) gm/dl Albumin/Globulin Ratio (0.9-2) Procalcitonin < 0.05 (0-0.5) ng/ml Urine Color Urine Appearance (Clear) Urine pH (4.5-7.5) Ur Specific [place] (1.000-1.030) Urine Protein (Negative) Urine Glucose (UA) (Negative) Urine Ketones (Negative) Urine Blood (Negative) Urine Nitrite (Negative) Urine Bilirubin (Negative) Urine Urobilinogen (Negative) Ur Leukocyte Esterase (Negative) Urine WBC (Auto) (0-5) /hpf Urine RBC (Auto) (0-4) /hpf U Hyaline Cast (Auto) (0-5) /lpf U Epithel Cells (Auto) (0-5) /lpf Urine Bacteria (Auto) (Negative) Anaplasma Smear Lyme Disease IgG Ab (Negative) Lyme Disease IgM Ab (Negative) COVID-19 Eval Order CovFluRsv at [facility] SARS-CoV-2 (PCR) (Negative) Influenza Type A (PCR) (Neg) Influenza Type B (PCR) (Neg) RSV (RT-PCR) (Neg) 07/11/20 07/11/20 07/11/20 Range/Units 09:40 09:40 10:52 WBC (4.8-10.8) K/uL RBC (4.7-6.1) M/uL Hgb (14.0-18.0) g/dL Hct (42-52) % MCV (80-100) fL MCH (25-34) pg MCHC (32-36) g/dL RDW Std Deviation (36.4-46.3) fL RDW Coeff of Randy (11.5-14.5) % Plt Count (130-400) K/uL MPV (7.4-10.4) fL Immature Gran % (Auto) % Neut % (Auto) % Lymph % (Auto) % [place] % (Auto) % Eos % (Auto) % Baso % (Auto) % Neut # (Auto) (1.4-6.5) K/uL Lymph # (Auto) (1.2-3.4) K/uL [place] # (Auto) (0.11-0.59) K/uL Eos # (Auto) (0-0.5) K/uL Baso # (Auto) (0-0.2) K/uL Immature Gran # (Auto) (0.00-0.02) K/uL PT (9.0-12.0) Seconds INR (0.9-1.1) APTT (21.0-31.0) Seconds PTT Ratio Sodium (136-145) mmol/L Potassium (3.5-5.1) mmol/L Chloride (98-107) mmol/L Carbon Dioxide (21-32) mmol/L Anion Gap (3-11) BUN (7-18) mg/dl Creatinine (0.6-1.4) mg/dl Est Cr Clr Drug Dosing Est GFR ( Amer) Est GFR (Non-Af Amer) BUN/Creatinine Ratio (10-20) Glucose (70-99) mg/dl Lactate (0.4-2.0) mmol/L Calcium (8.5-10.1) mg/dl Magnesium (1.8-2.4) mg/dl Total Bilirubin (0.2-1) mg/dl AST (15-37) U/L ALT (12-78) U/L Alkaline Phosphatase (45-117) U/L Troponin I (0-0.045) ng/ml NT-Pro-B Natriuret Pep (0-1800) pg/ml Total Protein (6.4-8.2) gm/dl Albumin (3.4-5.0) gm/dl Globulin (2.5-4.0) gm/dl Albumin/Globulin Ratio (0.9-2) Procalcitonin (0-0.5) ng/ml Urine Color Yellow Urine Appearance Clear (Clear) Urine pH 5.0 (4.5-7.5) Ur Specific [place] 1.025 (1.000-1.030) Urine Protein 1+ H (Negative) Urine Glucose (UA) Negative (Negative) Urine Ketones 1+ H (Negative) Urine Blood Negative (Negative) Urine Nitrite Negative (Negative) Urine Bilirubin Negative (Negative) Urine Urobilinogen Negative (Negative) Ur Leukocyte Esterase Negative (Negative) Urine WBC (Auto) 1-5 (0-5) /hpf Urine RBC (Auto) 0-4 (0-4) /hpf U Hyaline Cast (Auto) 1-5 (0-5) /lpf U Epithel Cells (Auto) 10-20 H (0-5) /lpf Urine Bacteria (Auto) Negative (Negative) Anaplasma Smear Lyme Disease IgG Ab Negative (Negative) Lyme Disease IgM Ab Negative (Negative) COVID-19 Eval Order SARS-CoV-2 (PCR) NEGATIVE (Negative) Influenza Type A (PCR) Negative (Neg) Influenza Type B (PCR) Negative (Neg) RSV (RT-PCR) Negative (Neg) Administered Medications Discontinued Medications Sodium Chloride (Nss 1000ml) 1,000 mls @ 999 mls/hr IV .[id number] ONE Stop: 07/11/20 12:48 Last Infusion: 07/11/20 13:35 Dose: 0 mls/hr Documented by: [id number] Admin: 07/11/20 12:07 Dose: 999 mls/hr Documented by: [id number] Imaging Data Radiologist's Impression: Chest X-Ray 07/11/20 09:07 XR chest 1V portable CLINICAL HISTORY: SEPSIS COMPARISON STUDY: Chest radiograph October 09, 2016. FINDINGS: Lung volumes are normal. Lungs are clear. There is no pneumothorax or pleural effusion. Cardiac size is stable. Mediastinal contours are normal. There is no evidence for pulmonary edema. IMPRESSION: No acute cardiopulmonary findings. ACT 112: Negative or not required by law. Electronically signed by: Timothy Fay M.D. 07/11/2020 9:51 AM Discharge Plan Visit Data Chief Complaint: Hypotension Stated Complaint: LOW BLOOD PRESSURE, VERY WEAK ED Provider: Husam Jose Discharge Problem: Weakness, Anemia, Fever, Low blood pressure Patient Disposition: Being Evaluated by Hospitalist Condition: Good Forms Stand Alone Forms: My [facility] Prescriptions Prescriptions: No Action ergocalciferol (vitamin D2) 2,000 unit tablet 2,000 units PO DAILY Qty: 30 RF: 0 simvastatin 40 mg tablet 40 mg PO QPM Qty: 90 RF: 1 rabeprazole [AcipHex] 20 mg tablet,delayed release (DR/EC) 20 mg PO DAILY PRN (Reason: reflux) Qty: 90 RF: 3 acetaminophen [Tylenol Arthritis Pain] 650 mg tablet extended release 650 mg PO Q12H PRN (Reason: Pain) RF: 0 cetirizine 10 mg tablet 10 mg PO QAM RF: 0 lisinopril 20 mg tablet 20 mg PO QAM RF: 0 aspirin [Adult Low Dose Aspirin] 81 mg tablet,delayed release (DR/EC) 162 mg PO QAM RF: 0 doxazosin 4 mg tablet 4 mg PO QPM RF: 0 atenolol 50 mg tablet 50 mg PO QAM RF: 0 finasteride 5 mg tablet 5 mg PO QAM RF: 0 Referrals Referrals: Sanna Jane DO [Primary Care Provider] - Discharge Problem: Anemia Qualifiers: Anemia type: unspecified type Qualified Code(s): D64.9 - Anemia, unspecified Fever Qualifiers: Fever type: unspecified Qualified Code(s): R50.9 - Fever, unspecified Low blood pressure Qualifiers: Hypotension type: unspecified hypotension type Qualified Code(s): I95.9 - Hypotension, unspecified
--- NOTE | 2020-07-11 09:52 | XRay Report ---
XR chest 1V portable CLINICAL HISTORY: SEPSIS COMPARISON STUDY: Chest radiograph October 09, 2016. FINDINGS: Lung volumes are normal. Lungs are clear. There is no pneumothorax or pleural effusion. Car diac size is stable. Mediastinal contours are normal. There is no evidence for pulmonary edema. IMPRESSION: No acute cardiopulmonary findings. ACT 112: Negative or not required by law. Electronically signed by: Timothy Fay M.D. 07/11/2020 9:51 AM
[2020-07-11 09:56] LABS: Basophils # (auto) 0.01 K/uL (0-0.2); Basophils % (auto) 0.1 %; Eosinophils # (auto) 0.14 K/uL (0-0.5); Eosinophils % (auto) 2.1 %; Hematocrit (blood only) 34.9 % (42-52); Hemoglobin 11.8 g/dL (14.0-18.0); Immature Granulocytes # (auto) 0.01 K/uL (0.00-0.02); Immature Granulocytes % (auto) 0.1 %; Lymphocytes # (auto) 0.86 K/uL (1.2-3.4); Lymphocytes % (auto) 12.7 %; Mean Corpuscular Hemoglobin 31.6 pg (25-34); Mean Corpuscular Hgb Conc 33.8 g/dL (32-36); Mean Corpuscular Volume 93.6 fL (80-100); Mean Platelet Volume 9.1 fL (7.4-10.4); Monocytes # (auto) 0.79 K/uL (0.11-0.59); Monocytes % (auto) 11.7 %; Neutrophils # (auto) 4.97 K/uL (1.4-6.5); Neutrophils % (auto) 73.3 %; Platelet Count 184 K/uL (130-400); RDW Coefficient of Variation 12.7 % (11.5-14.5); RDW Standard Deviation 42.8 fL (36.4-46.3); Red Blood Count 3.73 M/uL (4.7-6.1); White Blood Count 6.78 K/uL (4.8-10.8)
[2020-07-11 10:06] LABS: Partial Thromboplastin Ratio 1.1; Partial Thromboplastin Time 29.7 Seconds (21.0-31.0); Prothrombin Time 10.6 Seconds (9.0-12.0)
[2020-07-11 10:12] LABS: Alanine Aminotransferase 23 U/L (12-78); Albumin Level 3.1 gm/dl (3.4-5.0); Aspartate Aminotransferase 32 U/L (15-37); BUN Creatinine Ratio 19.4 (10-20); Blood Urea Nitrogen 35 mg/dl (7-18); Calcium 8.7 mg/dl (8.5-10.1); Carbon Dioxide 22 mmol/L (21-32); Chloride 104 mmol/L (98-107); Est GFR (African American) 37.9; Est GFR (Non-African American) 32.7; Glucose 115 mg/dl (70-99); Magnesium 1.9 mg/dl (1.8-2.4); Potassium 4.3 mmol/L (3.5-5.1); Sodium 134 mmol/L (136-145)
[2020-07-11 10:17] LABS: Albumin Globulin Ratio 0.6 (0.9-2); Alkaline Phosphatase 64 U/L (45-117); Bilirubin,Total 0.9 mg/dl (0.2-1); NT Pro B Type Natriuretic Pept 500 pg/ml (0-1800); Total Protein 8.1 gm/dl (6.4-8.2); Troponin I < 0.015 ng/ml (0-0.045)
[2020-07-11 10:37] LABS: Influenza A virus by PCR Negative (Neg); Influenza B virus by PCR Negative (Neg); RSV by PCR Negative (Neg); SARS CoV2 RNA(COVID-19) InHosp NEGATIVE (Negative)
[2020-07-11 11:04] LABS: Appearance Urine Clear (Clear); Bacteria Urine Automated Negative (Negative); Bilirubin Urine Negative (Negative); Blood Urine Negative (Negative); Color Urine Yellow; Glucose Urine UA Negative (Negative); Ketones Urine 1+ (Negative); Leukocyte Esterase Urine Negative (Negative); Nitrite Urine Negative (Negative); Protein Urine 1+ (Negative); RBC Urine Automated 0-4 /hpf (0-4); Specific Gravity Urine 1.025 (1.000-1.030); Urobilinogen Urine Negative (Negative)
[2020-07-11] MEDS ORDERED: SODIUM CHLORIDE 0.9% 1000ML 1,000 ML IV ONE (11:48)
--- NOTE | 2020-07-11 12:33 | Electrocardiogram Report ---
Test Reason : Blood Pressure : / mmHG Vent. 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
--- NOTE | 2020-07-11 12:41 | History & Physical Report ---
Date of Service July 11, 2020 Assessment & Plan (1) Fever: Presents with ongoing body aches, headaches, fevers to 104, chills, and low blood pressures that all started on 06/29 with a fall in the kitchen likely due to hypotension. Is at high risk for tickborne illness given that it is endemic here and [place]. Covid, RSV, influenza all negative, UA negative, chest x-ray negative, no abdominal pain or urinary symptoms, no diarrhea or abdominal pain. With some mild lymphopenia and anemia, borderline low platelets, normal LFTs. Also had knee pain and had a steroid injection on 06/29 but no evidence of infection in the knee. 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 Procalcitonin negative -Bring in on observation to medical floor with telemetry given hypotension -Tylenol as needed for fevers Did not have a fever in the ER and blood cultures were not drawn, but if spikes fever, would draw blood cultures -Start empiric doxycycline 100 mg IV every 12 hours -Check Lyme titer, anaplasmosis smear and DNA PCR -Supportive care with IV fluids for 1 more liter (2) Generalized weakness: Secondary to febrile illness, possibly tickborne illness as above Treating as above and will get PT/OT consultations (3) Hyponatremia: Sodium 134 on admission, likely secondary to dehydration and fevers Given 2 L IV fluids in the ER, will give 1 more liter of normal saline He is tolerating p.o. Follow BMP in the morning (4) Hypotension: Blood pressures in the 70 systolic on 06/29 in the setting of fall. They have been better at home and has been checking them since lowering the dose of lisinopril to 20 mg Continue to hold atenolol and hold lisinopril for now Follow blood pressures Giving IV fluids (5) Arteriosclerotic coronary artery disease: History of 2 stents in 2006, no ongoing symptoms since then No ischemia here, troponin negative, no chest pain Continue aspirin, holding atenolol as above for hypotension Holding lisinopril Continue statin (6) Anemia: Mild, history of B12 deficiency, could also be some anemia of acute illness follow CBC (7) Vitamin B12 deficiency: As above Notably not on B12 replacement but levels were normal when checked 3 weeks ago (8) Prediabetes: Most recent hemoglobin A1c 5.9% No need for diabetic diet or Accu-Cheks or insulin (9) Osteoarthritis: Continue Tylenol as needed (10) Hyperlipidemia: Continue statin (11) HTN (hypertension): Holding lisinopril and atenolol as above for hypotension Restart if blood pressures become elevated (12) Gastroesophageal reflux disease: Continue PPI (13) Chronic kidney disease, stage III (moderate): Creatinine a little above baseline at 1.8 -Avoid nephrotoxins -renally dose meds when appropriate -follow BMP (14) Benign enlargement of prostate: Hold doxazosin in the setting of hypotension Continue finasteride Watch for urinary retention (15) DVT prophylaxis: SCDs, Lovenox SQ Disposition-bring in on observation to medical floor with telemetry History of Present Illness Chief Complaint: Fevers, weakness, low blood pressure Primary Care Provider: Sanna Jane DO This patient is an 89-year-old male with a history of HTN, CKD stage III, GERD, prediabetes, vitamin B12 deficiency anemia, CAD, BPH, hyperlipidemia, and OA who presents to the ER with 1 day of fevers to 104 at the highest, chills at night, and intermittent low blood pressures on and off since 06/29 when he had a fall in the kitchen. He had been complaining of knee pain and low blood pressures at recent PCP visit on 06/29 and his lisinopril was lowered to 20mg daily. He had his left knee injected with steroids on that day and there was no fluid noted to be aspirated in procedure note. In the ER, he reports feeling lightheaded with standing and did not take his blood pressure medication this morning. He denies any abdominal pain, no nausea/vomiting/diarrhea, no rashes. He has had full body aches all over as well as headaches intermittently for the last week or so. Denies any chest pains or shortness of breath.He had a slight cough but no productive sputum and his chest x-ray was negative. No recent tick bites that he knows of but he frequently is chopping wood and [place]. In the ER, his CBC was fairly unremarkable except for some mild lymphopenia and mild anemia at 11.8, his creatinine was mildly elevated at 1.8 which is not too far off his baseline, procalcitonin was negative, troponin was negative, Covid test was negative along with influenza and RSV both been negative. His urinalysis was also negative. LFTs were normal. He was still feeling quite weak after 2 L of IV fluids were given, but was able to walk somewhat around in the room. He will be admitted for further work-up of his ongoing fevers to include work-up for tickborne illness, and empiric treatment with IV doxycycline, will observe for improvement overnight. Allergies Allergy/AdvReac Type Severity Reaction Status Date / Time No Known Allergies Allergy Unverified 06/29/20 08:44 Home Medications Medication Instructions Recorded Confirmed Type ergocalciferol (vitamin D2) 50 mcg 2,000 units PO DAILY #30 tab 11/19/18 07/11/20 Rx (2,000 unit) tablet simvastatin 40 mg tablet 40 mg PO QPM #90 tab 02/01/20 07/11/20 Rx rabeprazole 20 mg tablet,delayed 20 mg PO DAILY PRN #90 tab 06/20/20 07/11/20 Rx release acetaminophen 650 mg 650 mg PO Q12H PRN 06/29/20 07/11/20 History tablet,extended release aspirin [Adult Low Dose Aspirin] 162 mg PO QAM 07/11/20 07/11/20 History atenolol 50 mg PO QAM 07/11/20 07/11/20 History cetirizine 10 mg PO QAM 07/11/20 07/11/20 History doxazosin 4 mg PO QPM 07/11/20 07/11/20 History finasteride 5 mg PO QAM 07/11/20 07/11/20 History lisinopril 20 mg PO QAM 07/11/20 07/11/20 History 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 Chronic kidney disease, stage III (moderate) Diverticulosis (~07/2013) noted colonoscopy July 2013 Gastroesophageal reflux disease History of colon polyps (~07/2013) July 2013 HTN (hypertension) Hyperlipidemia Osteoarthritis Prediabetes Vitamin B12 deficiency Surgical History H/O arthroscopic knee surgery H/O circumcision S/P coronary artery stent placement (2006) x 2 Family History Family/Other Coronary heart disease Father Kidney disease Family history of liver cancer Cancer kidney Mother Heart disease Family history of CVA Brother Myocardial infarction Denies family history of Ovarian cancer Prostate cancer Breast cancer Colorectal cancer Social History Smoking Status: Never smoker Second Hand Exposure: No; Hx Alcohol Use: Yes Alcohol type: beer Alcohol Intake Frequency: Monthly or Less Hx Substance Use: No Preferred Language: Mozambican Communication Ability: Effective Visual Impairment: No Limitations Hearing Ability: Hard of Hearing Beliefs That Will Affect Care: None marital status: Current Living Situation: Spouse current occupational status: retired 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 Diet soda) during the past year weight has: remained stable Dental Care, Regularly: Yes Physical Activity Frequency: 3-4 Times per Week Seatbelt Use: always Sunscreen Use: No Review of Systems Review of Systems: All systems reviewed & are unremarkable except as noted in HPI & below Physical Exam Constitutional: WD/WN, vitals as above Eyes: PERRL, conjunctivae normal, anicteric sclerae ENMT: external ear and nose normal, oropharynx normal Neck: trachea midline, no thyromegaly Respiratory: normal respiratory effort, lungs clear to auscultation Cardiovascular: RRR, no murmur, no edema Chest (Breasts): Chest: normal inspection of chest Gastrointestinal (Abdomen): normal bowel sounds, soft, nontender, no hepatosplenomegaly Musculoskeletal: Extremities: extremities normal to inspection; no cyanosis and no clubbing No joint effusions of the knees bilaterally, full range of motion of the knees bilaterally, no erythema Skin: no rashes, warm and dry Neurologic: moves all extremities and awake; no focal motor deficits Psychiatric: A+Ox3, euthymic affect Lymphatic: no lymphedema Results & Data Results & Data ([facility]) Vital Signs (Past 12 Hours) Vital Signs Temp Pulse Pulse Resp BP BP Pulse Ox 07/11/20 12:01 79 23 91 07/11/20 12:00 79 20 118/64 93 07/11/20 11:31 81 24 94 07/11/20 11:30 82 21 114/66 94 07/11/20 11:01 81 20 95 07/11/20 11:00 82 22 118/71 93 07/11/20 10:38 83 20 94 07/11/20 10:37 83 23 117/61 93 07/11/20 10:31 82 20 96 07/11/20 10:01 85 20 95 07/11/20 10:00 92 H 24 93/66 L 93 07/11/20 09:54 85 21 95 07/11/20 09:40 85 20 94 07/11/20 09:39 85 18 125/59 L 94 07/11/20 09:34 85 20 125/59 L 94 07/11/20 08:55 36.7 C 94 H 18 104/61 95 Laboratory Results 07/11/20 07/11/20 07/11/20 Range/Units 10:52 09:40 09:40 WBC (4.8-10.8) K/uL RBC (4.7-6.1) M/uL Hgb (14.0-18.0) g/dL Hct (42-52) % MCV (80-100) fL MCH (25-34) pg MCHC (32-36) g/dL RDW Std Deviation (36.4-46.3) fL RDW Coeff of Randy (11.5-14.5) % Plt Count (130-400) K/uL MPV (7.4-10.4) fL Immature Gran % (Auto) % Neut % (Auto) % Lymph % (Auto) % [place] % (Auto) % Eos % (Auto) % Baso % (Auto) % Neut # (Auto) (1.4-6.5) K/uL Lymph # (Auto) (1.2-3.4) K/uL [place] # (Auto) (0.11-0.59) K/uL Eos # (Auto) (0-0.5) K/uL Baso # (Auto) (0-0.2) K/uL Immature Gran # (Auto) (0.00-0.02) K/uL PT (9.0-12.0) Seconds INR (0.9-1.1) APTT (21.0-31.0) Seconds PTT Ratio Sodium (136-145) mmol/L Potassium (3.5-5.1) mmol/L Chloride (98-107) mmol/L Carbon Dioxide (21-32) mmol/L Anion Gap (3-11) BUN (7-18) mg/dl Creatinine (0.6-1.4) mg/dl Est Cr Clr Drug Dosing Est GFR ( Amer) Est GFR (Non-Af Amer) BUN/Creatinine Ratio (10-20) Glucose (70-99) mg/dl Lactate (0.4-2.0) mmol/L Calcium (8.5-10.1) mg/dl Magnesium (1.8-2.4) mg/dl Total Bilirubin (0.2-1) mg/dl AST (15-37) U/L ALT (12-78) U/L Alkaline Phosphatase (45-117) U/L Troponin I (0-0.045) ng/ml NT-Pro-B Natriuret Pep (0-1800) pg/ml Total Protein (6.4-8.2) gm/dl Albumin (3.4-5.0) gm/dl Globulin (2.5-4.0) gm/dl Albumin/Globulin Ratio (0.9-2) Procalcitonin (0-0.5) ng/ml Urine Color Yellow Urine Appearance Clear (Clear) Urine pH 5.0 (4.5-7.5) Ur Specific [place] 1.025 (1.000-1.030) Urine Protein 1+ H (Negative) Urine Glucose (UA) Negative (Negative) Urine Ketones 1+ H (Negative) Urine Blood Negative (Negative) Urine Nitrite Negative (Negative) Urine Bilirubin Negative (Negative) Urine Urobilinogen Negative (Negative) Ur Leukocyte Esterase Negative (Negative) Urine WBC (Auto) 1-5 (0-5) /hpf Urine RBC (Auto) 0-4 (0-4) /hpf U Hyaline Cast (Auto) 1-5 (0-5) /lpf U Epithel Cells (Auto) 10-20 H (0-5) /lpf Urine Bacteria (Auto) Negative (Negative) COVID-19 Eval Order CovFluRsv at [facility] SARS-CoV-2 (PCR) NEGATIVE (Negative) Influenza Type A (PCR) Negative (Neg) Influenza Type B (PCR) Negative (Neg) RSV (RT-PCR) Negative (Neg) 07/11/20 07/11/20 07/11/20 Range/Units 09:40 09:40 09:40 WBC (4.8-10.8) K/uL RBC (4.7-6.1) M/uL Hgb (14.0-18.0) g/dL Hct (42-52) % MCV (80-100) fL MCH (25-34) pg MCHC (32-36) g/dL RDW Std Deviation (36.4-46.3) fL RDW Coeff of Randy (11.5-14.5) % Plt Count (130-400) K/uL MPV (7.4-10.4) fL Immature Gran % (Auto) % Neut % (Auto) % Lymph % (Auto) % [place] % (Auto) % Eos % (Auto) % Baso % (Auto) % Neut # (Auto) (1.4-6.5) K/uL Lymph # (Auto) (1.2-3.4) K/uL [place] # (Auto) (0.11-0.59) K/uL Eos # (Auto) (0-0.5) K/uL Baso # (Auto) (0-0.2) K/uL Immature Gran # (Auto) (0.00-0.02) K/uL PT (9.0-12.0) Seconds INR (0.9-1.1) APTT (21.0-31.0) Seconds PTT Ratio Sodium 134 L (136-145) mmol/L Potassium 4.3 (3.5-5.1) mmol/L Chloride 104 (98-107) mmol/L Carbon Dioxide 22 (21-32) mmol/L Anion Gap 8.0 (3-11) BUN 35 H (7-18) mg/dl Creatinine 1.82 H (0.6-1.4) mg/dl Est Cr Clr Drug Dosing Not Reportable Est GFR ( Amer) 37.9 Est GFR (Non-Af Amer) 32.7 BUN/Creatinine Ratio 19.4 (10-20) Glucose 115 H (70-99) mg/dl Lactate 1.2 (0.4-2.0) mmol/L Calcium 8.7 (8.5-10.1) mg/dl Magnesium 1.9 (1.8-2.4) mg/dl Total Bilirubin 0.9 (0.2-1) mg/dl AST 32 (15-37) U/L ALT 23 (12-78) U/L Alkaline Phosphatase 64 (45-117) U/L Troponin I < 0.015 (0-0.045) ng/ml NT-Pro-B Natriuret Pep 500 (0-1800) pg/ml Total Protein 8.1 (6.4-8.2) gm/dl Albumin 3.1 L (3.4-5.0) gm/dl Globulin 5.0 H (2.5-4.0) gm/dl Albumin/Globulin Ratio 0.6 L (0.9-2) Procalcitonin < 0.05 (0-0.5) ng/ml Urine Color Urine Appearance (Clear) Urine pH (4.5-7.5) Ur Specific [place] (1.000-1.030) Urine Protein (Negative) Urine Glucose (UA) (Negative) Urine Ketones (Negative) Urine Blood (Negative) Urine Nitrite (Negative) Urine Bilirubin (Negative) Urine Urobilinogen (Negative) Ur Leukocyte Esterase (Negative) Urine WBC (Auto) (0-5) /hpf Urine RBC (Auto) (0-4) /hpf U Hyaline Cast (Auto) (0-5) /lpf U Epithel Cells (Auto) (0-5) /lpf Urine Bacteria (Auto) (Negative) COVID-19 Eval Order SARS-CoV-2 (PCR) (Negative) Influenza Type A (PCR) (Neg) Influenza Type B (PCR) (Neg) RSV (RT-PCR) (Neg) 07/11/20 07/11/20 Range/Units 09:40 09:40 WBC 6.78 (4.8-10.8) K/uL RBC 3.73 L (4.7-6.1) M/uL Hgb 11.8 L (14.0-18.0) g/dL Hct 34.9 L (42-52) % MCV 93.6 (80-100) fL MCH 31.6 (25-34) pg MCHC 33.8 (32-36) g/dL RDW Std Deviation 42.8 (36.4-46.3) fL RDW Coeff of Randy 12.7 (11.5-14.5) % Plt Count 184 (130-400) K/uL MPV 9.1 (7.4-10.4) fL Immature Gran % (Auto) 0.1 % Neut % (Auto) 73.3 % Lymph % (Auto) 12.7 % [place] % (Auto) 11.7 % Eos % (Auto) 2.1 % Baso % (Auto) 0.1 % Neut # (Auto) 4.97 (1.4-6.5) K/uL Lymph # (Auto) 0.86 L (1.2-3.4) K/uL [place] # (Auto) 0.79 H (0.11-0.59) K/uL Eos # (Auto) 0.14 (0-0.5) K/uL Baso # (Auto) 0.01 (0-0.2) K/uL Immature Gran # (Auto) 0.01 (0.00-0.02) K/uL PT 10.6 (9.0-12.0) Seconds INR 1.0 (0.9-1.1) APTT 29.7 (21.0-31.0) Seconds PTT Ratio 1.1 Sodium (136-145) mmol/L Potassium (3.5-5.1) mmol/L Chloride (98-107) mmol/L Carbon Dioxide (21-32) mmol/L Anion Gap (3-11) BUN (7-18) mg/dl Creatinine (0.6-1.4) mg/dl Est Cr Clr Drug Dosing Est GFR ( Amer) Est GFR (Non-Af Amer) BUN/Creatinine Ratio (10-20) Glucose (70-99) mg/dl Lactate (0.4-2.0) mmol/L Calcium (8.5-10.1) mg/dl Magnesium (1.8-2.4) mg/dl Total Bilirubin (0.2-1) mg/dl AST (15-37) U/L ALT (12-78) U/L Alkaline Phosphatase (45-117) U/L Troponin I (0-0.045) ng/ml NT-Pro-B Natriuret Pep (0-1800) pg/ml Total Protein (6.4-8.2) gm/dl Albumin (3.4-5.0) gm/dl Globulin (2.5-4.0) gm/dl Albumin/Globulin Ratio (0.9-2) Procalcitonin (0-0.5) ng/ml Urine Color Urine Appearance (Clear) Urine pH (4.5-7.5) Ur Specific [place] (1.000-1.030) Urine Protein (Negative) Urine Glucose (UA) (Negative) Urine Ketones (Negative) Urine Blood (Negative) Urine Nitrite (Negative) Urine Bilirubin (Negative) Urine Urobilinogen (Negative) Ur Leukocyte Esterase (Negative) Urine WBC (Auto) (0-5) /hpf Urine RBC (Auto) (0-4) /hpf U Hyaline Cast (Auto) (0-5) /lpf U Epithel Cells (Auto) (0-5) /lpf Urine Bacteria (Auto) (Negative) COVID-19 Eval Order SARS-CoV-2 (PCR) (Negative) Influenza Type A (PCR) (Neg) Influenza Type B (PCR) (Neg) RSV (RT-PCR) (Neg) Diagnostic Findings Chest X-Ray 07/11/20 09:07 XR chest 1V portable CLINICAL HISTORY: SEPSIS COMPARISON STUDY: Chest radiograph October 09, 2016. FINDINGS: Lung volumes are normal. Lungs are clear. There is no pneumothorax or pleural effusion. Cardiac size is stable. Mediastinal contours are normal. There is no evidence for pulmonary edema. IMPRESSION: No acute cardiopulmonary findings. ACT 112: Negative or not required by law. Electronically signed by: Timothy Fay M.D. 07/11/2020 9:51 AM ECG Additional Comments: EKG on 07/11/2020 at 9:34 AM with sinus rhythm with first- degree AV block, NJ interval 222, rate 84, old anteroseptal infarct, unchanged from previous Code Status & VTE Plan Code Status DNR/DNI VTE Prophylaxis Plan VTE Prophylaxis will be ordered: Yes PG Care Time/CCT Total # of Minutes Spent Total Time Spent with Patient: Total time spent is greater than 50% in coordination of care (as documented) at patient's floor/unit and/or counseling patient: Coding Level of Care Code 88460 OBS Care - Level 3 Diagnoses Fever R50.9 Generalized weakness R53.1 Hyponatremia E87.1 Hypotension I95.9 Arteriosclerotic coronary artery disease I25.10 Anemia D64.9 Vitamin B12 deficiency E53.8 Prediabetes R73.03 Osteoarthritis M19.90 Hyperlipidemia E78.5 HTN (hypertension) I10 Gastroesophageal reflux disease K21.9 Chronic kidney disease, stage III (moderate) N18.3 Benign enlargement of prostate N40.0 DVT prophylaxis Z29.9
[2020-07-11 13:56] LABS: Lyme Ab IgG w/WB Rflx Negative (Negative); Lyme Ab IgM w/WB Rflx Negative (Negative)
[2020-07-11] MEDS ORDERED: ONDANSETRON INJ 2 MG/ML 2 ML VIAL IV PRN (17:03)
[2020-07-11] MEDS ORDERED: POLYETHYLENE (MIRALAX) 17 GM PACK PO PRN (17:03)
[2020-07-11] MEDS ORDERED: SODIUM CHLORIDE 0.9% 1000ML 1,000 ML IV SCH (17:45)
[2020-07-11] MEDS: DOXYCYCLINE HYCLATE 100 MG in DEXTROSE 5% 100 ML IV SCH (18:59)
[2020-07-11] MEDS: CHOLECALCIFEROL 1,000 UNITS 25 MCG TAB PO SCH (19:00)
[2020-07-11] MEDS: ENOXAPARIN INJ 30 MG/0.3 ML SYR SQ SCH (19:01)
[2020-07-11] MEDS: ASPIRIN 81 MG ECTAB PO SCH (19:01)
[2020-07-11] MEDS: FINASTERIDE 5 MG TAB PO SCH (19:02)
[2020-07-11] MEDS: PANTOprazole 40 MG TAB PO SCH (19:03)
[2020-07-11] MEDS: ACETAMINOPHEN 325 MG TAB PO PRN (19:29)
[2020-07-11] MEDS: SIMVASTATIN 40 MG TAB PO SCH (20:55)
[2020-07-12] MEDS: DOXYCYCLINE HYCLATE 100 MG in DEXTROSE 5% 100 ML IV SCH ×2 (05:51→17:42)
[2020-07-12 06:21] LABS: Basophils # (auto) 0.01 K/uL (0-0.2); Basophils % (auto) 0.2 %; Eosinophils # (auto) 0.36 K/uL (0-0.5); Eosinophils % (auto) 6.7 %; Hematocrit (blood only) 34.1 % (42-52); Hemoglobin 11.4 g/dL (14.0-18.0); Immature Granulocytes # (auto) 0.01 K/uL (0.00-0.02); Immature Granulocytes % (auto) 0.2 %; Lymphocytes # (auto) 1.61 K/uL (1.2-3.4); Lymphocytes % (auto) 29.8 %; Mean Corpuscular Hemoglobin 31.5 pg (25-34); Mean Corpuscular Hgb Conc 33.4 g/dL (32-36); Mean Corpuscular Volume 94.2 fL (80-100); Mean Platelet Volume 9.3 fL (7.4-10.4); Monocytes # (auto) 0.49 K/uL (0.11-0.59); Monocytes % (auto) 9.1 %; Neutrophils # (auto) 2.93 K/uL (1.4-6.5); Platelet Count 188 K/uL (130-400); RDW Coefficient of Variation 12.9 % (11.5-14.5); RDW Standard Deviation 44.8 fL (36.4-46.3); Red Blood Count 3.62 M/uL (4.7-6.1); White Blood Count 5.41 K/uL (4.8-10.8)
[2020-07-12 07:02] LABS: Albumin Globulin Ratio 0.6 (0.9-2); Albumin Level 2.8 gm/dl (3.4-5.0); BUN Creatinine Ratio 19.1 (10-20); Bilirubin,Total 0.8 mg/dl (0.2-1); Calcium 8.3 mg/dl (8.5-10.1); Est GFR (African American) 46.7; Est GFR (Non-African American) 40.3; Globulin 4.7 gm/dl (2.5-4.0); Potassium 4.8 mmol/L (3.5-5.1); Total Protein 7.5 gm/dl (6.4-8.2)
[2020-07-12] MEDS: PANTOprazole 40 MG TAB PO SCH (08:14)
[2020-07-12] MEDS: FINASTERIDE 5 MG TAB PO SCH (08:15)
[2020-07-12] MEDS: CHOLECALCIFEROL 1,000 UNITS 25 MCG TAB PO SCH (08:15)
[2020-07-12] MEDS: CETIRIZINE HCL 10 MG TABLET PO SCH (08:15)
[2020-07-12] MEDS: ASPIRIN 81 MG ECTAB PO SCH (08:15)
[2020-07-12] MEDS: ACETAMINOPHEN 325 MG TAB PO PRN ×2 (08:48→20:03)
[2020-07-12] MEDS: AMOXICILLIN/CLAVULANATE 875 MG TAB PO SCH ×2 (12:35→17:44)
[2020-07-12] MEDS ORDERED: SODIUM CHLORIDE 0.65% NA SOLN 45 ML (OCEAN) NAE PRN (12:58)
--- NOTE | 2020-07-12 12:58 | Hospitalist Progress Note ---
Date of Service July 12, 2020 Assessment & Plan (1) Fever: Presents with ongoing body aches, headaches, fevers to 104, chills, and low blood pressures that all started on 06/29 with a fall in the kitchen likely due to hypotension. Is at high risk for tickborne illness given that it is endemic here and he lives [place]. Covid, RSV, influenza all negative, UA negative, chest x-ray negative, no abdominal pain or urinary symptoms, no diarrhea or abdominal pain. - Continue empiric doxycycline 100 mg IV every 12 hours -> Lyme titer negative. Anaplasma smear negative, but DNA still pending. - Started Augmentin on 07/12 for possible sinusitis given nasal drainage, sinus pressure, and erythema of bilateral nares. (2) Generalized weakness: Secondary to febrile illness, possibly tickborne illness as above - Treating as above and will get PT/OT consultations (3) Hypotension: Blood pressures in the 70 systolic on 06/29 in the setting of fall. They have been better at home, and has been checking them since lowering the dose of lisinopril to 20 mg. - Continue to hold atenolol and hold lisinopril for now - Follow blood pressures -> Still on the low end, but not quite so low. Presently 95/60. (4) Arteriosclerotic coronary artery disease: History of 2 stents in 2006, no ongoing symptoms since then. No ischemia here, troponin negative, no chest pain. - Continue aspirin, statin - Hold beta-jaime and ACEi for hypotension (5) Anemia: Mild, history of B12 deficiency, could also be some anemia of acute illness. - Follow CBC -> Stable. (6) HTN (hypertension): Holding lisinopril and atenolol as above for hypotension. (7) Gastroesophageal reflux disease: - Continue PPI (8) Chronic kidney disease, stage III (moderate): Creatinine a little above baseline at 1.8. - Avoid nephrotoxins - Renally dose meds when appropriate - Follow BMP -> Improved today to 1.5. At baseline. (9) Benign enlargement of prostate: - Hold doxazosin in the setting of hypotension. - Continue finasteride - Watch for urinary retention (10) DVT prophylaxis: Lovenox 30 mg SQ daily Admission and Anticipated Discharge Date Admission Date: July 11, 2020 Subjective Note some sinus pressure today, but overall feels "75%" better than yesterday. Reports no fevers/chills, chest pain, shortness of breath, abdominal pain, nausea, or vomiting. Physical Exam Constitutional: WD/WN, vitals as above Eyes: EOM intact bilaterally; no conjunctival abnormality ENMT: external ear and nose normal, oropharynx normal Nose: + nasal mucous membrane abnormality (Redness/irritation) and + sinus tenderness (Mild in forehead); no external nose abnormality, no epistaxis and no nasal polyps Neck: trachea midline, no thyromegaly normal visual inspection Respiratory: normal respiratory effort, lungs clear to auscultation no respiratory distress Cardiovascular: RRR, no murmur, no edema Gastrointestinal (Abdomen): Inspection/Auscultation: abdomen normal to inspection; abdomen not distended Musculoskeletal: no cyanosis or clubbing, extremities motor strength 5/5 Skin: no rashes, warm and dry Neurologic: moves all extremities and awake Psychiatric: Orientation: alert, oriented to person and cooperative Results & Data Results & Data ([facility]) Vital Signs (Past 12 Hours) Vital Signs Temp Pulse Pulse Resp BP Pulse Ox 07/12/20 11:28 37.6 C H 79 18 96/58 L 93 07/12/20 08:48 38.8 C H 07/12/20 07:00 37.8 C H 76 73 18 112/54 L 95 07/12/20 03:05 36.9 C 73 18 117/57 L 93 PG Care Time/CCT Total # of Minutes Spent Total Time Spent with Patient: Total time spent is greater than 50% in coordination of care (as documented) at patient's floor/unit and/or counseling patient: Coding Level of Care Code 11012 Subseq Hosp Care Lvl 3 Diagnoses Fever R50.9 Generalized weakness R53.1 Hypotension I95.9 Arteriosclerotic coronary artery disease I25.10 Anemia D64.9 HTN (hypertension) I10 Gastroesophageal reflux disease K21.9 Chronic kidney disease, stage III (moderate) N18.3 Benign enlargement of prostate N40.0 DVT prophylaxis Z29.9
[2020-07-12] MEDS: ENOXAPARIN INJ 30 MG/0.3 ML SYR SQ SCH (17:42)
[2020-07-12] MEDS: SIMVASTATIN 40 MG TAB PO SCH (20:03)
[2020-07-12] MEDS ORDERED: ACETAMINOPHEN 325 MG TAB PO PRN (20:19)
[2020-07-13] MEDS: DOXYCYCLINE HYCLATE 100 MG in DEXTROSE 5% 100 ML IV SCH (05:45)
[2020-07-13 05:56] LABS: Hematocrit (blood only) 32.7 % (42-52); Hemoglobin 11.2 g/dL (14.0-18.0); Mean Corpuscular Hemoglobin 31.7 pg (25-34); Mean Corpuscular Hgb Conc 34.3 g/dL (32-36); Mean Corpuscular Volume 92.6 fL (80-100); Mean Platelet Volume 9.3 fL (7.4-10.4); Platelet Count 159 K/uL (130-400); RDW Coefficient of Variation 12.8 % (11.5-14.5); RDW Standard Deviation 43.2 fL (36.4-46.3); Red Blood Count 3.53 M/uL (4.7-6.1); White Blood Count 4.16 K/uL (4.8-10.8)
[2020-07-13 06:31] LABS: BUN Creatinine Ratio 16.2 (10-20); Calcium 8.2 mg/dl (8.5-10.1); Creatinine Clr Calc Pharmacy 36.4 ml/min; Est GFR (Non-African American) 42.3; Magnesium 1.7 mg/dl (1.8-2.4); Potassium 4.2 mmol/L (3.5-5.1)
[2020-07-13] MEDS: CHOLECALCIFEROL 1,000 UNITS 25 MCG TAB PO SCH (08:27)
[2020-07-13] MEDS: CETIRIZINE HCL 10 MG TABLET PO SCH (08:27)
[2020-07-13] MEDS: PANTOprazole 40 MG TAB PO SCH (08:27)
[2020-07-13] MEDS: AMOXICILLIN/CLAVULANATE 875 MG TAB PO SCH (08:27)
[2020-07-13] MEDS: ASPIRIN 81 MG ECTAB PO SCH (08:27)
[2020-07-13] MEDS: FINASTERIDE 5 MG TAB PO SCH (08:27)
[2020-07-13] MEDS ORDERED: OPTIRAY 300 100mL IV ONE (10:47)
--- NOTE | 2020-07-13 11:45 | CT Scan Report ---
CT OF THE ABDOMEN AND PELVIS WITH CONTRAST CLINICAL HISTORY: Fever unknown source. COMPARISON STUDY: CT of the abdomen and pelvis October 09, 2016. TECHNIQUE: Following IV administration of 89 mL of Optiray, axial images of the abdomen and pelvis we re obtained from the lung bases to the proximal femurs. Images were reviewed in the axial, sagittal, and coronal planes. IV contrast was administered without complication. Automated exposure control wa s utilized for the study. A dose lowering technique was utilized adhering to the principles of ALARA . Oral contrast was administered. CT DOSE: 537.78 mGy.cm FINDINGS: A small hiatal hernia is noted. Trace right pleural effusion is present. There is moderate cardiomegaly and coronary artery calcification. Lung bases are unremarkable. This exam is compromised by motion artifact. The liver, spleen, adrenal glands and pancreas are unremarkable. There is no elodia iary or pancreatic ductal dilatation. There is no peripancreatic or pericholecystic infiltration. Padmini er attenuation bilateral renal lesions reflect cysts. There is no hydronephrosis. There are several s uspected small right renal calculi. There are no ureteral calculi. There is mild bladder wall thicken ing. The caliber and wall thickness of small and large bowel are normal. Sigmoid diverticulosis is no itz without evidence for acute diverticulitis. The appendix is normal. There is no lymphadenopathy. N o acute fracture or suspicious lesion is identified within visualized skeletal structures. No abscess is identified. Infrarenal abdominal aorta is ectatic, measuring 2.7 cm. IMPRESSION: 1. No acute process within the abdomen or pelvis. 2. Exam compromised by motion artifact. 3. Right-sided nephrolithiasis. ACT 112: Negative or not required by law. Electronically signed by: Timothy Fay M.D. 07/13/2020 11:43 AM
--- NOTE | 2020-07-13 16:02 | Discharge Summary ---
Date of Service July 13, 2020 Admission HPI Per Admitting Provider This patient is an 89-year-old male with a history of HTN, CKD stage III, GERD, prediabetes, vitamin B12 deficiency anemia, CAD, BPH, hyperlipidemia, and OA who presents to the ER with 1 day of fevers to 104 at the highest, chills at night, and intermittent low blood pressures on and off since 06/29 when he had a fall in the kitchen. He had been complaining of knee pain and low blood pressures at recent PCP visit on 06/29 and his lisinopril was lowered to 20mg daily. He had his left knee injected with steroids on that day and there was no fluid noted to be aspirated in procedure note. In the ER, he reports feeling lightheaded with standing and did not take his blood pressure medication this morning. He denies any abdominal pain, no nausea/vomiting/diarrhea, no rashes. He has had full body aches all over as well as headaches intermittently for the last week or so. Denies any chest pains or shortness of breath.He had a slight cough but no productive sputum and his chest x-ray was negative. No recent tick bites that he knows of but he frequently is chopping wood and lives in the [facility]. In the ER, his CBC was fairly unremarkable except for some mild lymphopenia and mild anemia at 11.8, his creatinine was mildly elevated at 1.8 which is not too far off his baseline, procalcitonin was negative, troponin was negative, Covid test was negative along with influenza and RSV both been negative. His urin alysis was also negative. LFTs were normal. He was still feeling quite weak after 2 L of IV fluids were given, but was able to walk somewhat around in the room. He will be admitted for further work-up of his ongoing fevers to include work-up for tickborne illness, and empiric treatment with IV doxycycline, will observe for improvement overnight. Principal Diagnosis Fever of unknown source Discharge Exam Constitutional WD/WN, vitals as above Eyes EOM intact bilaterally; no conjunctival abnormality ENMT external ear and nose normal, oropharynx normal Nose: + sinus tenderness (Mild in forehead); no external nose abnormality, no epistaxis and no nasal polyps Neck trachea midline, no thyromegaly normal visual inspection Respiratory normal respiratory effort, lungs clear to auscultation no respiratory distress Cardiovascular RRR, no murmur, no edema Gastrointestinal (Abdomen) Inspection/Auscultation: abdomen normal to inspection; abdomen not distended Musculoskeletal no cyanosis or clubbing, extremities motor strength 5/5 Skin no rashes, warm and dry Neurologic moves all extremities and awake Psychiatric Orientation: alert, oriented to person and cooperative Discharge Data Allergies Allergy/AdvReac Type Severity Reaction Status Date / Time No Known Allergies Allergy Unverified 06/29/20 08:44 Consultations 07/11/20 12:28 ED Decision to Admit Stat Ordered Studies 07/13/20 08:21 CT abd pelvis oral and IV con Routine Hospital Course (1) Fever: Presents with ongoing body aches, headaches, fevers to 104, chills, and low blood pressures that all started on 06/29 with a fall in the kitchen likely due to hypotension. Is at high risk for tickborne illness given that it is endemic here and he lives and works in the [employer]. Covid, RSV, influenza all negative, UA negative, chest x-ray negative, no a bdominal pain or urinary symptoms, no diarrhea or abdominal pain. - CT a/p on 07/13 showed no gallbladder or bowel pathology. - Continue empiric doxycycline 100 mg PO every 12 hours -> Lyme titer negative. Anaplasma smear negative, but anaplasma DNA still pending. Total of a 7-day course. If anaplasmosis DNA comes back positive, will need additional 3 - 5 days. - Started Augmentin on 07/12 for possible sinusitis given nasal drainage, sinus pressure, and erythema of bilateral nares. - Discharged on 7 days of both antibiotics. (On the day of discharge, he was very upset about still being in the hospital. Despite no definitive cause of his fevers and continued fevers the prior night, he was not willing to stay any longer in the hospital. Discharged with encouragement to have close follow up with PCP.) (2) Generalized weakness: Secondary to febrile illness, possibly tickborne illness as above - Improved by discharge. (3) Hypotension: Blood pressures in the 70 systolic on 06/29 in the setting of fall. They have been better at home, and has been checking them since lowering the dose of lisinopril to 20 mg. - Discharged off lisinoril - Cut atenolol in half. As he felt better, his BP was returning to normal. (4) Arteriosclerotic coronary artery disease: History of 2 stents in 2006, no ongoing symptoms since then. No ischemia here, troponin negative, no chest pain. - Continue aspirin, statin - Held beta-jaime and ACEi for hypotension (5) Anemia: Mild, history of B12 deficiency, could also be some anemia of acute illness. - Follow CBC -> Stable. (6) HTN (hypertension): Held lisinopril and atenolol as above for hypotension. (7) Gastroesophageal reflux disease: - Continue PPI (8) Chronic kidney disease, stage III (moderate): Creatinine a little above baseline at 1.8. - Avoid nephrotoxins - Renally dose meds when appropriate - Follow BMP -> Improved by discharge to 1.5. At baseline. (9) Benign enlargement of prostate: - Hold doxazosin in the setting of hypotension. - Continue finasteride - Watch for urinary retention -> None noted. (10) DVT prophylaxis: Lovenox 30 mg SQ daily Total Time Total Time Spent Total Time Spent (In Minutes): 35 Discharge Plan Discharge Items Patient Disposition: Home - Self-Care Reason For Visit: FEVERS, HYPOTENSION Discharge Diagnosis: Fever, possible sinus infection Condition on Discharge: Good Activity: Resume your previous activity Non-emergency contact: Primary Care Provider Call non-emergency contact if: your symptoms worsen and your temperature is above 101 Follow-up/Referrals: Sanna Jane DO [Primary Care Provider] - 07/18/20 3:30 pm Diet: Heart Healthy Addtl Attending Provider Instructions: You were admitted with fevers. We feel these may be due to a tick-borne illness vs. a sinus infection. We did a variety of tests, but did not find any particula r infection with imaging. We would like to send you home with two antibiotics that should cover most tick- borne and sinus issues. Please take your next doses of both antibiotics tonight before bed. Please follow up with your PCP this week or early next week to be sure you are doing well. Please stop your lisinopril to help keep your blood pressure from falling too low. Please take a half pill of your atenolol instead of the full pill until you see Dr. Jane in the office to help keep your blood pressure from falling too low. Pending Studies at Discharge: No Stand-Alone Forms: My [facility], Smoking Cessation Medications and DC Order Prescriptions: New amoxicillin-pot clavulanate [Augmentin] 875-125 mg Tablet 1 tab PO BIDM Qty: 13 RF: 0 doxycycline hyclate 100 mg capsule 100 mg PO BID Qty: 13 RF: 0 Continued ergocalciferol (vitamin D2) 2,000 unit tablet 2,000 units PO DAILY Qty: 30 RF: 0 simvastatin 40 mg tablet 40 mg PO QPM Qty: 90 RF: 1 rabeprazole [AcipHex] 20 mg tablet,delayed release (DR/EC) 20 mg PO DAILY PRN (Reason: reflux) Qty: 90 RF: 3 acetaminophen [Tylenol Arthritis Pain] 650 mg tablet extended release 650 mg PO Q12H PRN (Reason: Pain) RF: 0 cetirizine 10 mg tablet 10 mg PO QAM RF: 0 aspirin [Adult Low Dose Aspirin] 81 mg tablet,delayed release (DR/EC) 162 mg PO QAM RF: 0 doxazosin 4 mg tablet 4 mg PO QPM RF: 0 finasteride 5 mg tablet 5 mg PO QAM RF: 0 Changed atenolol 50 mg tablet 25 mg PO QAM Qty: 0 RF: 0 Discontinued lisinopril 20 mg tablet 20 mg PO QAM RF: 0 Discharge Orders: Discharge Order (Routine); Ordered 07/13/20 Ordered By: Alan Gómez Admission Data Admit Date/Time: 07/11/20 13:17 Attending Provider: Alan Gómez Admit Provider: Kaylen Aj Primary Care Provider: Sanna Jane Other Providers: Alan Gómez ; Kaylen Aj Other Interventions: Discharge Summary Assessment (RN) Last Done: 07/13/20 11:41 Coding Level of Care Code 58247 OBS Care - Discharge Diagnoses Fever R50.9 Generalized weakness R53.1 Hypotension I95.9 Arteriosclerotic coronary artery disease I25.10 Anemia D64.9 HTN (hypertension) I10 Gastroesophageal reflux disease K21.9 Chronic kidney disease, stage III (moderate) N18.3 Benign enlargement of prostate N40.0 DVT prophylaxis Z29.9
== END 2020-07-13 14:30 | disposition home or self-care (01) ==
LOC: ED 08:25 → 2N 08:25 → SUATTDRO 13:17 → 2N 16:19 → 3N 07-13 00:09